=== PATIENT | female | born 1960 | race Caucasian/White ===

== ENCOUNTER 2023-01-02 19:34 | Emergency (ER) | payer MEDICARE ==
--- NOTE | 2023-01-02 20:17 | ED ---
SOB HPI - General Source: patient, family, RN notes reviewed Mode of arrival: ambulatory Limitations: no limitations - History of Present Illness MD Complaint: shortness of breath, cough <Haily Banerjee - Last Filed: 01/02/23 20:16> <Marixa Stallings - Last Filed: 01/03/23 00:06> <GigiharleenKeaton - Last Filed: 01/03/23 00:11> - General Chief Complaint: Shortness of Breath Stated Complaint: SOB,Sore throat,congested Time Seen by Provider: 01/02/23 20:13 - History of Present Illness Initial Comments: This is a 62 year old female who presents to the emergency department for s hortness of breath. Symptoms started 3 days ago. Symptoms began with fevers, chills, coughing, body aches, and a sore throat before progressing to the shortness of breath. Last night and into today she felt nauseous as well. Also reports feeling very fatigued. She went to [facility] urgent care earlier today and had a chest x-ray demonstrating left lower lobe pneumonia, and she was advised to come to the emergency department for further evaluation and blood work. (Haily Banerjee) I agree with the above HPI. Patient short of breath with exertion she does have history of COPD states she has not had insurance therefore does not take any medications for to home. She does not wear supplemental nausea. She is not short of breath at rest. She denies chest pain. Denies leg pain and swelling. (Marixa Stallings) - Related Data Home Medications Medication Instructions Recorded Confirmed Acetaminophen Tab [Tylenol Tab] 1,000 mg PO Q6HR PRN 01/02/23 01/02/23 guaiFENesin [Mucinex] 600 mg PO Q12H PRN 01/02/23 01/02/23 Previous Rx's Medication Instructions Recorded Albuterol Inhaler [Ventolin Hfa 2 puff INHALATION QID #8 gm 01/02/23 Inhaler] predniSONE 50 mg PO DAILY #5 tab 01/02/23 Azithromycin [Zithromax] 500 mg PO DAILY #7 tab 01/03/23 Ipratropium/Albuter 20-100Mcg 1 puff INHALATION Q4H #4 gm 01/03/23 [Combivent Respimat 20-100Mcg Inhaler] Allergies Allergy/AdvReac Type Severity Reaction Status Date / Time codeine Allergy Unknown Verified 01/02/23 22:59 cyclobenzaprine Allergy Unknown Verified 01/02/23 22:59 [From Flexeril] morphine Allergy Unknown Verified 01/02/23 22:59 Review of Systems ROS Other: All systems not noted in ROS Statement are negative. <Haily Banerjee - Last Filed: 01/02/23 20:16> ROS Other: All systems not noted in ROS Statement are negative. <Marixa Stallings - Last Filed: 01/03/23 00:06> ROS Other: All systems not noted in ROS Statement are negative. <Keaton Hull - Last Filed: 01/03/23 00:11> ROS Statement: Those systems with pertinent positive or pertinent negative responses have been documented in the HPI. General Exam <Haily Banerjee - Last Filed: 01/02/23 20:16> General appearance: alert Respiratory exam: Present: decreased breath sounds (left lower). Absent: normal lung sounds bilaterally, respiratory distress, wheezes, rales, rhonchi, stridor Cardiovascular Exam: Present: regular rate, normal rhythm, normal heart sounds. Absent: systolic murmur, diastolic murmur, rubs, gallop, clicks Extremities exam: Present: normal inspection, normal capillary refill Neurological exam: Present: alert Psychiatric exam: Present: normal affect, normal mood Skin exam: Present: warm, dry, intact, normal color. Absent: rash <HaylieMarixa toro - Last Filed: 01/03/23 00:06> - General Exam Comments Initial Comments: Visual Physical Exam Vital signs reviewed General: Well-appearing, nontoxic, no acute distress. Head: Normocephalic, atraumatic Eyes: PERRLA, EOMI ENT: Airway patent Chest: Nonlabored breathing Skin: No visual rash, normal skin tone Neuro: Alert and oriented 3 Musculoskeletal: No gross abnormalities I performed the QuickNote portion of this chart. Signed Haily Banerjee PA-C. (Haily Banerjee) Course Vital Signs 01/02/23 01/03/23 01/03/23 20:15 00:02 00:10 Temperature 98.8 F Pulse Rate 83 62 64 Respiratory 24 Rate Blood Pressure 126/80 O2 Sat by Pulse 98 Oximetry Medical Decision Making - Lab Data Result diagrams: 01/02/23 22:28 01/02/23 22:28 <Bryson Stallingsna - Last Filed: 01/03/23 00:06> - Lab Data Result diagrams: 01/02/23 22:28 01/02/23 22:28 <Keaton Hull - Last Filed: 01/03/23 00:11> - Medical Decision Making EKG taken at 22:26, interpreted by myself Sinus rhythm, nonspecific T-wave abnormality Ventricular rate 71, DE interval 142, QRS duration 109, QTc 427 Was pt. sent in by a medical professional or institution (, PA, MAT PUNCHER, urgent care, hospital, or detention...) When possible be specific @ -Urgent care Did you speak to anyone other than the patient for history (EMS, parent, family, police, friend...)? What history was obtained from this source @ -[No] Did you review nursing and triage notes (agree or disagree)? Why? @ -[I reviewed and agree with nursing and triage notes] Were old charts reviewed (outside hosp., previous admission, EMS record, old EKG, old radiological studies, urgent care reports/EKG's, detention records)? Report findings @ -[No old charts were reviewed] Differential Diagnosis (chest pain, altered mental status, abdominal pain women, abdominal pain men, vaginal bleeding, weakness, fever, dyspnea, syncope, headache, dizziness, GI bleed, back pain, seizure, CVA, palpatations, mental health)? @ -Differential Dyspnea: Coronary syndrome, arrhythmia, tamponade, asthma, COPD, pulmonary embolism, pneumonia, pneumothorax, pulmonary effusion, anaphylaxis, diabetic ketoacidosis, flailed chest, pulmonary contusion, diaphragmatic rupture, anemia, neuromuscula r, this is not meant to be an all-inclusive list. EKG interpreted by me (3pts min.). @ -[As above] X-rays interpreted by me (1pt min.). @ -[None done] CT interpreted by me (1pt min.). @ -[None done] U/S interpreted by me (1pt. min.). @ -[None done] What testing was considered but not performed or refused? (CT, X-rays, U/S, labs )? Why? @ -[None] What meds were considered but not given or refused? Why? @ -[None] Did you discuss the management of the patient with other professionals (professionals i.e. , PA, MAT PUNCHER, lab, RT, psych nurse, hospice social worker, electrical lineworker, teacher, boat officer, case sealer)? Give summary @ -[No] Was smoking cessation discussed for >3mins.? @ -[No] Was critical care preformed (if so, how long)? @ -[No] Were there social determinants of health that impacted care today? How? (Homelessness, low income, unemployed, alcoholism, drug addiction, transportation, low edu. Level, literacy, decrease access to med. care, retirement, rehab)? @ -[No] Was there de-escalation of care discussed even if they declined (Discuss DNR or withdrawal of care, Hospice)? DNR status @ -[No] What co-morbidities impacted this encounter? (DM, HTN, Smoking, COPD, CAD, Cancer, CVA, ARF, Chemo, Hep., AIDS, mental health diagnosis, sleep apnea, morbid obesity)? @ -[None] Was patient admitted / discharged? Hospital course, mention meds given and route, prescriptions, significant lab abnormalities, going to OR and other pert inent info. @ -62-year-old female presenting for shortness of breath. Patient well appearing in no apparent distress. No hypoxia. No wheezing or rhonchi. Laboratory studies obtained. No leukocytosis. Viral and strep testing is negative. Patient given breathing treatment with improvement. X-ray interpreted by myself showing * . .Results discussed with patient. Patient is immunocompetent, no fever, leukocytosis, vomiting, or chest pain. She will be discharged with anti biotics for pneumonia. She does not have a nebulizer at home she will be sent home with albuterol inhaler and steroids for COPD exacerbation. She will follow-up with her primary care provider. Discussed return parameters. Undiagnosed new problem with uncertain prognosis? @ -[No] Drug Therapy requiring intensive monitoring for toxicity (Heparin, Nitro, Insulin, Cardizem)? @ -[No] Were any procedures done? @ -[No] Diagnosis/symptom? @ -[default] Acute, or Chronic, or Acute on Chronic? @ -[default] Uncomplicated (without systemic symptoms) or Complicated (systemic symptoms)? @ -[default] Side effects of treatment? @ -[No] Exacerbation, Progression, or Severe Exacerbation? @ -[No] Poses a threat to life or bodily function? How? (Chest pain, [place], [place], pneumonia, PE, COPD, DKA, ARF, appy, cholecystitis, CVA, Diverticulitis, Homicidal, Suicidal, threat to staff... and all critical care pts) @ -[No] Dr. Hull is my attending. (Marixa Stallings) - Lab Data Lab Results 01/02/23 01/02/23 01/02/23 Range/Units 22:28 22:28 22:28 WBC 7.1 (3.8-10.6) k/uL RBC 4.50 (3.80-5.40) m/uL Hgb 13.8 (11.4-16.0) gm/dL Hct 41.4 (34.0-46.0) % MCV 91.9 (80.0-100.0) fL MCH 30.6 (25.0-35.0) pg MCHC 33.3 (31.0-37.0) g/dL RDW 13.4 (11.5-15.5) % Plt Count 256 (150-450) k/uL MPV 8.5 Neutrophils % 62 % Lymphocytes % 26 % Monocytes % 6 % Eosinophils % 3 % Basophils % 1 % Neutrophils # 4.4 (1.3-7.7) k/uL Lymphocytes # 1.9 (1.0-4.8) k/uL Monocytes # 0.5 (0-1.0) k/uL Eosinophils # 0.2 (0-0.7) k/uL Basophils # 0.0 (0-0.2) k/uL PT 9.9 (9.0-12.0) sec INR 0.9 (<1.2) APTT 24.4 (22.0-30.0) sec Sodium 140 (137-145) mmol/L Potassium 4.0 (3.5-5.1) mmol/L Chloride 105 (98-107) mmol/L Carbon Dioxide 24 (22-30) mmol/L Anion Gap 11 mmol/L BUN 12 (7-17) mg/dL Creatinine 0.72 (0.52-1.04) mg/dL Est GFR (CKD-EPI)AfAm >90 (>60 ml/min/1.73 sqM) Est GFR (CKD-EPI)NonAf >90 (>60 ml/min/1.73 sqM) Glucose 106 H (74-99) mg/dL Plasma Lactic Acid Fredy (0.7-2.0) mmol/L Calcium 9.4 (8.4-10.2) mg/dL Total Bilirubin 0.3 (0.2-1.3) mg/dL AST 31 (14-36) U/L ALT 35 H (4-34) U/L Alkaline Phosphatase 72 (38-126) U/L Total Protein 7.3 (6.3-8.2) g/dL Albumin 4.2 (3.5-5.0) g/dL Influenza Type A (PCR) (Not Detectd) Influenza Type B (PCR) (Not Detectd) RSV (PCR) (Not Detectd) SARS-CoV-2 (PCR) (Not Detectd) Group A Strep (PCR) (Not Detectd) 01/02/23 01/02/23 01/02/23 Range/Units 22:28 22:28 22:38 WBC (3.8-10.6) k/uL RBC (3.80-5.40) m/uL Hgb (11.4-16.0) gm/dL Hct (34.0-46.0) % MCV (80.0-100.0) fL MCH (25.0-35.0) pg MCHC (31.0-37.0) g/dL RDW (11.5-15.5) % Plt Count (150-450) k/uL MPV Neutrophils % % Lymphocytes % % Monocytes % % Eosinophils % % Basophils % % Neutrophils # (1.3-7.7) k/uL Lymphocytes # (1.0-4.8) k/uL Monocytes # (0-1.0) k/uL Eosinophils # (0-0.7) k/uL Basophils # (0-0.2) k/uL PT (9.0-12.0) sec INR (<1.2) APTT (22.0-30.0) sec Sodium (137-145) mmol/L Potassium (3.5-5.1) mmol/L Chloride (98-107) mmol/L Carbon Dioxide (22-30) mmol/L Anion Gap mmol/L BUN (7-17) mg/dL Creatinine (0.52-1.04) mg/dL Est GFR (CKD-EPI)AfAm (>60 ml/min/1.73 sqM) Est GFR (CKD-EPI)NonAf (>60 ml/min/1.73 sqM) Glucose (74-99) mg/dL Plasma Lactic Acid Fredy 1.0 (0.7-2.0) mmol/L Calcium (8.4-10.2) mg/dL Total Bilirubin (0.2-1.3) mg/dL AST (14-36) U/L ALT (4-34) U/L Alkaline Phosphatase (38-126) U/L Total Protein (6.3-8.2) g/dL Albumin (3.5-5.0) g/dL Influenza Type A (PCR) Not Detected (Not Detectd) Influenza Type B (PCR) Not Detected (Not Detectd) RSV (PCR) Not Detected (Not Detectd) SARS-CoV-2 (PCR) Not Detected (Not Detectd) Group A Strep (PCR) NOT DETECTED (Not Detectd) Disposition <Haily Banerjee - Last Filed: 01/02/23 20:16> Is patient prescribed a controlled substance at d/c from ED?: No <Marixa Stallings - Last Filed: 01/03/23 00:06> Is patient prescribed a controlled substance at d/c from ED?: No <Keaton Hull - Last Filed: 01/03/23 00:11> Clinical Impression: COPD exacerbation Disposition: HOME SELF-CARE Condition: Good Instructions (If sedation given, give patient instructions): COPD (Chronic Obstructive Pulmonary Disease) (ED) Additional Instructions: Take medication as directed. Please follow-up with your primary care provider in 1-2 days. Return to the emergency department if you experience new, concerning, or worsening symptoms. Prescriptions: Ipratropium/Albuter 20-100Mcg [Combivent Respimat 20-100Mcg Inhaler] 1 puff INHALATION Q4H #4 gm predniSONE 50 mg PO DAILY #5 tab Albuterol Inhaler [Ventolin Hfa Inhaler] 2 puff INHALATION QID #8 gm Azithromycin [Zithromax] 500 mg PO DAILY #7 tab Referrals: None,Stated [Primary Care Provider] - 1-2 days
[2023-01-02] MEDS ORDERED: ONDANSETRON 4 MG/2 ML VIAL IVP STA (22:15)
[2023-01-02 22:40] LABS: Basophils % (A) 1 %; Eosinophils # (A) 0.2 k/uL (0-0.7); Eosinophils % (A) 3 %; HCT 41.4 % (34.0-46.0); HGB 13.8 gm/dL (11.4-16.0); Lymphocytes # (A) 1.9 k/uL (1.0-4.8); Lymphocytes % (A) 26 %; MCH 30.6 pg (25.0-35.0); MCHC 33.3 g/dL (31.0-37.0); MCV 91.9 fL (80.0-100.0); Mean Platelet Volume 8.5; Monocytes # (A) 0.5 k/uL (0-1.0); Monocytes % (A) 6 %; Neutrophils # (A) 4.4 k/uL (1.3-7.7); Neutrophils % (A) 62 %; Platelet Count 256 k/uL (150-450); RDW 13.4 % (11.5-15.5); WBC 7.1 k/uL (3.8-10.6)
[2023-01-02 22:48] LABS: INR 0.9 (<1.2); Partial Thromboplastin Time 24.4 sec (22.0-30.0); Prothrombin Time 9.9 sec (9.0-12.0)
[2023-01-02 22:50] LABS: ALT 35 U/L (4-34); AST 31 U/L (14-36); African American GFR (CKD) >90 (>60 ml/min/1.73 sqM); Albumin 4.2 g/dL (3.5-5.0); Alkaline Phosphatase 72 U/L (38-126); Anion Gap 11 mmol/L; Blood Urea Nitrogen 12 mg/dL (7-17); Calcium 9.4 mg/dL (8.4-10.2); Carbon Dioxide 24 mmol/L (22-30); Chloride 105 mmol/L (98-107); Glucose 106 mg/dL (74-99); Non-African American GFR(CKD) >90 (>60 ml/min/1.73 sqM); Sodium 140 mmol/L (137-145); Total Bilirubin 0.3 mg/dL (0.2-1.3); Total Protein 7.3 g/dL (6.3-8.2)
[2023-01-02] MEDS ORDERED: ALBUTEROL NEBULIZED 2.5 MG/3 ML INHALATION STA (23:13)
[2023-01-02] MEDS ORDERED: methylPREDNISolone SOD SUCCI 125 MG/2 ML VIAL IV STA (23:46)
[2023-01-03] MEDS ORDERED: AZITHROMYCIN 250 MG TAB PO STA (00:02)
--- NOTE | 2023-01-03 00:15 | XR ---
EXAM: XR Chest, 2 Views CLINICAL HISTORY: XR Reason: difficulty breathing TECHNIQUE: Frontal and lateral views of the chest. COMPARISON: No relevant prior studies available. FINDINGS: Lungs: Prominent interstitial markings in the mid to lower lungs bilaterally. Pleural space: Unremarkable. No pneumothorax. Heart: Unremarkable. No cardiomegaly. Mediastinum: Unremarkable. Bones/joints: Unremarkable. Upper abdomen: Unremarkable as visualized. No pneumoperitoneum under the diaphragm. IMPRESSION: Prominent interstitial markings in the mid to lower lungs bilaterally. Consider viral or atypical pneumonitis, less likely scarring or atelectasis.
[2023-01-03 00:18] VITALS: BP 105/71; PULSE 65; RESP 16; TEMP 98.7
== END 2023-01-03 00:17 | disposition home or self-care (01) ==
LOC: EC 19:34
DX: J44.1 Chronic obstructive pulmonary disease with (acute) exacerbation (principal); Z88.5 Allergy status to narcotic agent; Z88.8 Allergy status to other drugs, medicaments and biological substances; Z20.822 Contact with and (suspected) exposure to COVID-19
CPT/HCPCS: 36415; 94640; 93005; 87651; 80053; 83605; 85025; 85610; 85730; 87636; 71046; 99285; 96374; 96375; J2930; J2405

== ENCOUNTER → 2023-05-14 | Outpatient (CLI) | payer MEDICARE ==
--- NOTE | 2023-05-14 16:47 | XR ---
EXAMINATION TYPE: XR chest 2V DATE OF EXAM: 05/14/2023 COMPARISON: 01/02/2023 INDICATION: History of pneumonia TECHNIQUE: Single frontal view of the chest is obtained. FINDINGS: The heart size is normal. The pulmonary vasculature is normal. Some linear opacities in the left lower lung field. Correlate for atelectasis or scarring. This may h ave been present previously. Suspicious consolidation is not identified. IMPRESSION: 1. Atelectasis or scarring left base
== END | disposition home or self-care (01) ==
LOC: RADXRMAIN 16:16
PROVIDERS: ATTEND Family Medicine
DX: J18.9 Pneumonia, unspecified organism (principal)
CPT/HCPCS: 71046

== ENCOUNTER 2023-05-16 09:34 | Observation (INO) | payer MEDICARE ==
[2023-05-16] MEDS: ASPIRIN 81 MG PO STA (10:03)
[2023-05-16] MEDS: NITROGLYCERIN OINT 1 INCH/GM PACKET TOPICAL STA (10:04)
--- NOTE | 2023-05-16 10:13 | XR ---
EXAMINATION TYPE: XR chest 2V DATE OF EXAM: 05/16/2023 10:09 AM CLINICAL INDICATION:Female, 63 years old with history of Chest Pain; [facility] COMPARISON: Chest radiographs from 05/14/2023 TECHNIQUE: XR chest 2V Frontal and lateral views of the chest. FINDINGS: Lungs/Pleura: Midlung streaky atelectasis on the left. There is no evidence of pleural effusion, foca l consolidation, or pneumothorax. Pulmonary vascularity: Unremarkable. Heart/mediastinum: Cardiomediastinal silhouette is unremarkable. Atherosclerotic calcifications are seen in the aorta. Musculoskeletal: No acute osseous pathology. Other findings: None IMPRESSION: 1. No acute cardiopulmonary disease/process. 2. Left midlung streaky atelectasis.
[2023-05-16 10:15] LABS: Basophils # (A) 0.1 k/uL (0-0.2); Basophils % (A) 1 %; Eosinophils # (A) 0.2 k/uL (0-0.7); Eosinophils % (A) 2 %; HCT 42.6 % (34.0-46.0); HGB 14.1 gm/dL (11.4-16.0); Lymphocytes # (A) 2.2 k/uL (1.0-4.8); Lymphocytes % (A) 25 %; MCH 29.9 pg (25.0-35.0); MCV 90.5 fL (80.0-100.0); Mean Platelet Volume 8.1; Monocytes # (A) 0.3 k/uL (0-1.0); Monocytes % (A) 4 %; Neutrophils # (A) 5.9 k/uL (1.3-7.7); Neutrophils % (A) 67 %; Platelet Count 361 k/uL (150-450); RBC 4.71 m/uL (3.80-5.40); RDW 13.3 % (11.5-15.5); WBC 8.9 k/uL (3.8-10.6)
[2023-05-16 10:27] LABS: INR 0.9 (<1.2); Partial Thromboplastin Time 23.8 sec (22.0-30.0)
[2023-05-16 10:30] LABS: ALT 33 U/L (4-34); AST 26 U/L (14-36); African American GFR (CKD) >90 (>60 ml/min/1.73 sqM); Albumin 4.1 g/dL (3.5-5.0); Alkaline Phosphatase 83 U/L (38-126); Anion Gap 9 mmol/L; Blood Urea Nitrogen 19 mg/dL (7-17); Calcium 9.7 mg/dL (8.4-10.2); Carbon Dioxide 23 mmol/L (22-30); Chloride 104 mmol/L (98-107); Glucose 94 mg/dL (74-99); Magnesium 1.9 mg/dL (1.6-2.3); Non-African American GFR(CKD) >90 (>60 ml/min/1.73 sqM); Potassium 5.1 mmol/L (3.5-5.1); Sodium 136 mmol/L (137-145); Total Bilirubin 0.5 mg/dL (0.2-1.3)
--- NOTE | 2023-05-16 10:30 | CT ---
EXAMINATION TYPE: CT brain wo con DATE OF EXAM: 05/16/2023 COMPARISON: 05/16/2023. HISTORY: Headache. Technique: Axial images of the head were obtained without contrast. Coronal and sagittal reformats we re performed. FINDINGS: There is no acute intracranial hemorrhage, mass, mass effect, midline shift, extra-axial fluid collec tion or hydrocephalus. The blankenship-white distinction is intact without evidence of an acute major vessel infarct. There is mucosal thickening seen within the left maxillary sinus. Visualized paranasal sinuses and ma stoid air cells are otherwise clear. IMPRESSION: No acute intracranial process.
[2023-05-16] MEDS ORDERED: NITROGLYCERIN SL TABS 0.4 MG TAB SUBLINGUAL PRN (10:58)
--- NOTE | 2023-05-16 10:58 | ED ---
General Adult HPI - General Chief complaint: Chest Pain Stated complaint: CHEST PAIN Time Seen by Provider: 05/16/23 09:40 Source: patient, RN notes reviewed, old records reviewed Mode of arrival: ambulatory Limitations: no limitations - History of Present Illness Initial comments: This is a 63-year-old female who presents to the emergency department co mplaining of chest pain and shortness of breath that started 8:00 this morning. Patient states she was a smoker up until about a week ago. Patient states she never sees a doctor so she does not know if she has any history of high blood pressure or high cholesterol. Patient again does not know about diabetes but has never been diagnosed with that. Patient states that chest pain is a pressure sensation. Patient denies any radiation of the pain. Patient denies any abdominal pain patient states she is nauseous and has vomited. Patient denies any diarrhea. Patient has any recent fever chills or cough. Patient has any swelling to the legs or calf tenderness. - Related Data Home Medications Medication Instructions Recorded Confirmed Acetaminophen Tab [Tylenol Tab] 1,000 mg PO Q6HR PRN 01/02/23 01/02/23 guaiFENesin [Mucinex] 600 mg PO Q12H PRN 01/02/23 01/02/23 Previous Rx's Medication Instructions Recorded Albuterol Inhaler [Ventolin Hfa 2 puff INHALATION QID #8 gm 01/02/23 Inhaler] predniSONE 50 mg PO DAILY #5 tab 01/02/23 Azithromycin [Zithromax] 500 mg PO DAILY #7 tab 01/03/23 Ipratropium/Albuter 20-100Mcg 1 puff INHALATION Q4H #4 gm 01/03/23 [Combivent Respimat 20-100Mcg Inhaler] Allergies Allergy/AdvReac Type Severity Reaction Status Date / Time codeine Allergy Unknown Verified 05/16/23 09:42 cyclobenzaprine Allergy Unknown Verified 05/16/23 09:42 [From Flexeril] morphine Allergy Unknown Verified 05/16/23 09:42 Review of Systems ROS Statement: Those systems with pertinent positive or pertinent negative responses have been documented in the HPI. ROS Other: All systems not noted in ROS Statement are negative. Past Medical History Past Medical History: COPD History of Any Multi-Drug Resistant Organisms: None Reported Past Surgical History: Section, Orthopedic Surgery Past Psychological History: No Psychological Hx Reported Smoking Status: Current every day smoker Past Alcohol Use History: None Reported Past Drug Use History: None Reported General Exam - General Exam Comments Initial Comments: GENERAL: Patient is well-developed and well-nourished. Patient is nontoxic and well- hydrated and is in mild distress. ENT: Neck is soft and supple. No significant lymphadenopathy is noted. Oropharynx is clear. Moist mucous membranes. Neck has full range of motion without eliciting any pain. EYES: The sclera were anicteric and conjunctiva were pink and moist. Extraocular movements were intact and pupils were equal round and reactive to light. Eyelids were unremarkable. PULMONARY: Unlabored respirations. Good breath sounds bilaterally. No audible rales rhonchi or wheezing was noted. CARDIOVASCULAR: There is a regular rate and rhythm without any murmurs gallops or rubs. ABDOMEN: Soft and nontender with normal bowel sounds. SKIN: Skin is clear with no lesions or rashes and otherwise unremarkable. NEUROLOGIC: Patient is alert and oriented x3. Cranial nerves II through XII are grossly intact. Motor and sensory are also intact. Normal speech, volume and content. Symmetrical smile. MUSCULOSKELETAL: Normal extremities with adequate strength and full range of motion. No lower extremity swelling or edema. No calf tenderness. LYMPHATICS: No significant lymphadenopathy is noted PSYCHIATRIC: Normal psychiatric evaluation. Limitations: no limitations Course Vital Signs 05/16/23 09:37 Temperature 98 F Pulse Rate 72 Respiratory 18 Rate Blood Pressure 117/72 O2 Sat by Pulse 98 Oximetry Medical Decision Making - Medical Decision Making EKG is interpreted by myself. EKG shows a sinus rhythm at 72 bpm UT is 123 QRS is 90 QT interval 393 QTc is 418. Patient's EKG shows no ST segment ovation or depression. Was pt. sent in by a medical professional or institution (, PA, FLAT [employer] ELEMENT MAKER, urgent care, hospital, or skilled nursing...) When possible be specific @ -No Did you speak to anyone other than the patient for history (EMS, parent, family, police, friend...)? What history was obtained from this source @ -No Did you review nursing and triage notes (agree or disagree)? Why? @ -I reviewed and agree with nursing and triage notes Were old charts reviewed (outside hosp., previous admission, EMS record, old EKG, old radiological studies, urgent care reports/EKG's, skilled nursing records)? Report findings @ -No old charts were reviewed Differential Diagnosis (chest pain, altered mental status, abdominal pain women, abdominal pain men, vaginal bleeding, weakness, fever, dyspnea, syncope, headache, dizziness, GI bleed, back pain, seizure, CVA, palpatations, mental health, musculoskeletal)? @ -Differential Chest Pain: Stable Angina, Unstable Angina, STEMI, NSTEMI Aortic Dissection, Pneumothorax, Musculoskeletal, Esophageal Spasm GERD, Cholecystitis, Pancreatitis, Zoster, this is not meant to be an all-inclusive list. EKG interpreted by me (3pts min.). @ -As above X-rays interpreted by me (1pt min.). @ -Chest x-ray shows no acute abnormality. CT interpreted by me (1pt min.). @ -Head CT shows no acute normality. U/S interpreted by me (1pt. min.). @ -None done What testing was considered but not performed or refused? (CT, X-rays, U/S, labs)? Why? @ -None What meds were considered but not given or refused? Why? @ -None Did you discuss the management of the patient with other professionals (professionals i.e. , PA, [employer] MAKER, lab, RT, psych nurse, social media sr strategy manager, experimental machinist, teacher, personal banking officer, manager rn case)? Give summary @ -[facility] Was smoking cessation discussed for >3mins.? @ -No Was critical care preformed (if so, how long)? @ -No Were there social determinants of health that impacted care today? How? (Homelessness, low income, unemployed, alcoholism, drug addiction, transportation, low edu. Level, literacy, decrease access to med. care, skilled nursing, rehab)? @ -No Was there de-escalation of care discussed even if they declined (Discuss DNR or withdrawal of care, Hospice)? DNR status @ -No What co-morbidities impacted this encounter? (DM, HTN, Smoking, COPD, CAD, Cancer, CVA, ARF, Chemo, Hep., AIDS, mental health diagnosis, sleep apnea, morbid obesity)? @ -None Was patient admitted / discharged? Hospital course, mention meds given and route, prescriptions, significant lab abnormalities, going to OR and other pert inent info. @ -Patient received aspirin and Nitropaste when I went back into reevaluate her she was feeling considerably better at this time. Patient also got Toradol and Tylenol for the headache once the CAT scan was done. I spoke with [facility] hospitalist they agreed to admit the patient admit the patient I consulted cardiology and I wrote admitting orders Undiagnosed new problem with uncertain prognosis? @ -No Drug Therapy requiring intensive monitoring for toxicity (Heparin, Nitro, Insulin, Cardizem)? @ -No Were any procedures done? @ -No Diagnosis/symptom? @ -Chest pain Acute, or Chronic, or Acute on Chronic? @ -Acute Uncomplicated (without systemic symptoms) or Complicated (systemic symptoms)? @ -Complicated Side effects of treatment? @ -No Exacerbation, Progression, or Severe Exacerbation? @ -No Poses a threat to life or bodily function? How? (Chest pain, [place], [place], pneumonia, PE, COPD, DKA, ARF, appy, cholecystitis, CVA, Diverticulitis, Homicidal, Suicidal, threat to staff... and all critical care pts) @ -Yes this could lead to an OK and endorgan dysfunction Diagnosis/symptom? @ -Cephalgia Acute, or Chronic, or Acute on Chronic? @ -Acute Uncomplicated (without systemic symptoms) or Complicated (systemic symptoms)? @ -Complicated Side effects of treatment? @ -None Exacerbation, Progression, or Severe Exacerbation] @ -No Poses a threat to life or bodily function? @ -No - Lab Data Result diagrams: 05/16/23 09:59 05/16/23 09:59 Lab Results 05/16/23 05/16/23 05/16/23 Range/Units 09:59 09:59 09:59 WBC 8.9 (3.8-10.6) k/uL RBC 4.71 (3.80-5.40) m/uL Hgb 14.1 (11.4-16.0) gm/dL Hct 42.6 (34.0-46.0) % MCV 90.5 (80.0-100.0) fL MCH 29.9 (25.0-35.0) pg MCHC 33.0 (31.0-37.0) g/dL RDW 13.3 (11.5-15.5) % Plt Count 361 (150-450) k/uL MPV 8.1 Neutrophils % 67 % Lymphocytes % 25 % Monocytes % 4 % Eosinophils % 2 % Basophils % 1 % Neutrophils # 5.9 (1.3-7.7) k/uL Lymphocytes # 2.2 (1.0-4.8) k/uL Monocytes # 0.3 (0-1.0) k/uL Eosinophils # 0.2 (0-0.7) k/uL Basophils # 0.1 (0-0.2) k/uL PT 10.0 (10.0-12.5) sec INR 0.9 (<1.2) APTT 23.8 (22.0-30.0) sec Sodium 136 L (137-145) mmol/L Potassium 5.1 (3.5-5.1) mmol/L Chloride 104 (98-107) mmol/L Carbon Dioxide 23 (22-30) mmol/L Anion Gap 9 mmol/L BUN 19 H (7-17) mg/dL Creatinine 0.72 (0.52-1.04) mg/dL Est GFR (CKD-EPI)AfAm >90 (>60 ml/min/1.73 sqM) Est GFR (CKD-EPI)NonAf >90 (>60 ml/min/1.73 sqM) Glucose 94 (74-99) mg/dL Calcium 9.7 (8.4-10.2) mg/dL Magnesium 1.9 (1.6-2.3) mg/dL Total Bilirubin 0.5 (0.2-1.3) mg/dL AST 26 (14-36) U/L ALT 33 (4-34) U/L Alkaline Phosphatase 83 (38-126) U/L Troponin I (0.000-0.034) ng/mL Total Protein 7.0 (6.3-8.2) g/dL Albumin 4.1 (3.5-5.0) g/dL 05/16/23 Range/Units 09:59 WBC (3.8-10.6) k/uL RBC (3.80-5.40) m/uL Hgb (11.4-16.0) gm/dL Hct (34.0-46.0) % MCV (80.0-100.0) fL MCH (25.0-35.0) pg MCHC (31.0-37.0) g/dL RDW (11.5-15.5) % Plt Count (150-450) k/uL MPV Neutrophils % % Lymphocytes % % Monocytes % % Eosinophils % % Basophils % % Neutrophils # (1.3-7.7) k/uL Lymphocytes # (1.0-4.8) k/uL Monocytes # (0-1.0) k/uL Eosinophils # (0-0.7) k/uL Basophils # (0-0.2) k/uL PT (10.0-12.5) sec INR (<1.2) APTT (22.0-30.0) sec Sodium (137-145) mmol/L Potassium (3.5-5.1) mmol/L Chloride (98-107) mmol/L Carbon Dioxide (22-30) mmol/L Anion Gap mmol/L BUN (7-17) mg/dL Creatinine (0.52-1.04) mg/dL Est GFR (CKD-EPI)AfAm (>60 ml/min/1.73 sqM) Est GFR (CKD-EPI)NonAf (>60 ml/min/1.73 sqM) Glucose (74-99) mg/dL Calcium (8.4-10.2) mg/dL Magnesium (1.6-2.3) mg/dL Total Bilirubin (0.2-1.3) mg/dL AST (14-36) U/L ALT (4-34) U/L Alkaline Phosphatase (38-126) U/L Troponin I <0.012 (0.000-0.034) ng/mL Total Protein (6.3-8.2) g/dL Albumin (3.5-5.0) g/dL Disposition Clinical Impression: Chest pain, Cephalgia Disposition: ADMITTED IP TO THIS HOSP Referrals: Alma Jasso MD [Primary Care Provider] - 1-2 days Time of Disposition: 10:58
[2023-05-16] MEDS: KETOROLAC 15 MG/ML 1 ML VIAL IVP STA (11:12)
[2023-05-16] MEDS: ACETAMINOPHEN TAB 500 MG TAB PO STA (11:15)
[2023-05-16] MEDS: NITROGLYCERIN OINT 1 INCH/GM PACKET TOPICAL SCH (12:03)
[2023-05-16] MEDS ORDERED: ONDANSETRON 4 MG/2 ML VIAL IVP PRN (12:08)
[2023-05-16] MEDS ORDERED: NALOXONE 0.4 MG/ML 1 ML VIAL IV PRN (12:08)
--- NOTE | 2023-05-16 12:45 | P.HPIM ---
History of Present Illness H&P Date: 05/16/23 Chief Complaint: Chest pain * 63-year-old patient with past medical history significant for COPD presents to the emergency department with complaints of chest pain and shortness of breath that started earlier today. Patient states she has history of COPD and chronic tobacco use however she has not smoked in 1 week. Patient stated that chest pain has been diffuse pressure. Patient denies chest pain radiation. Workup in the ER included an EKG which was essentially negative. Serial troponins were obtained which were initially negative as well * Blood work obtained include WBC within normal limits hemoglobin and platelet count within normal limits * Serum chemistry shows sodium 136 potassium 5.1, BUN and creatinine essentially normal, calcium within normal limits * Patient to be admitted to medical floor with consultation from cardiology REVIEW OF SYSTEMS: Chest pain, shortness of breath CONSTITUTIONAL: No fever, no malaise, no fatigue. HEENT: No recent visual problems or hearing problems. Denied any sore throat. CARDIOVASCULAR: No chest pain, orthopnea, PND, no palpitations, no syncope. PULMONARY: No shortness of breath, no cough, no hemoptysis. GASTROINTESTINAL: No diarrhea, no nausea, no vomiting, no abdominal pain. NEUROLOGICAL: No headaches, no weakness, no numbness. HEMATOLOGICAL: Denies any bleeding or petechiae. GENITOURINARY: Denies any burning micturition, frequency, or urgency. MUSCULOSKELETAL/RHEUMATOLOGICAL: Denies any joint pain, swelling, or any muscle pain. ENDOCRINE: Denies any polyuria or polydipsia. PHYSICAL EXAMINATION: GENERAL: The patient is alert and oriented x3, not in any acute distress. Well developed, well nourished. HEENT: Pupils are round and equally reacting to light. EOMI. No scleral icterus. No conjunctival pallor. Normocephalic, atraumatic. No pharyngeal erythema. No thyromegaly. CARDIOVASCULAR: S1 and S2 present. No murmurs, rubs, or gallops. PULMONARY: Chest is clear to auscultation, no wheezing or crackles. ABDOMEN: Soft, nontender, nondistended, normoactive bowel sounds. No palpable organomegaly. MUSCULOSKELETAL: No joint swelling or deformity. EXTREMITIES: No cyanosis, clubbing, or pedal edema. NEUROLOGICAL: Gross neurological examination did not reveal any focal deficits. SKIN: No rashes. Past Medical History Past Medical History: COPD History of Any Multi-Drug Resistant Organisms: None Reported Past Surgical History: Section, Orthopedic Surgery Past Psychological History: No Psychological Hx Reported Smoking Status: Current every day smoker Past Alcohol Use History: None Reported Past Drug Use History: None Reported Medications and Allergies Home Medications Medication Instructions Recorded Confirmed Type Ipratropium/Albuter 20-100Mcg 1 puff INHALATION RT-Q6H PRN 05/16/23 05/16/23 History [Combivent Respimat 20-100Mcg Inhaler] Allergies Allergy/AdvReac Type Severity Reaction Status Date / Time codeine Allergy Unknown Verified 05/16/23 11:02 cyclobenzaprine Allergy Unknown Verified 05/16/23 11:02 [From Flexeril] morphine Allergy Unknown Verified 05/16/23 11:02 Physical Exam Vitals: Vital Signs Temp Pulse Resp BP Pulse Ox 05/16/23 09:37 98 F 72 18 117/72 98 Intake and Output 05/15/23 05/16/23 05/16/23 22:59 06:59 14:59 Other: Weight 84.822 kg Results CBC & Chem 7: 05/16/23 09:59 05/16/23 09:59 Labs: Abnormal Lab Results - Last 24 Hours (Table) 05/16/23 Range/Units 09:59 Sodium 136 L (137-145) mmol/L BUN 19 H (7-17) mg/dL Assessment and Plan Assessment: Assessment and plan * Chest pain rule out ACS * History of COPD * Chronic tobacco use * In regards to chest pain, serial troponins ordered, cardiology consulted sublingual nitroglycerin * In regards to history of COPD as needed breathing treatments * In regards to chronic tobacco use nicotine patch ordered * CODE STATUS is full code Time with Patient: Greater than 30
[2023-05-16] MEDS: NICOTINE 21MG/24HR PATCH TRANSDERM SCH (12:55)
[2023-05-16] MEDS: SODIUM CHLORIDE 0.9% 1,000 ML IV SCH (12:57)
[2023-05-16] MEDS: IPRATROPIUM-ALBUTEROL 3 ML NEB INHALATION PRN (20:25)
[2023-05-17] MEDS: ASPIRIN 325 MG TAB PO SCH (08:47)
--- NOTE | 2023-05-17 10:45 | P.CRDCN ---
History of Present Illness History of present illness: HISTORY OF PRESENT ILLNESS: This is a 63-year-old female with a past medical history significant for heart disease, hyperlipidemia, COPD and nicotine dependence. Patient does not follow w ith a maintenance chief. We have been asked to see the patient in consultation for chest pain. Patient examined at the bedside. Patient presented to the hospital with a chief complaint of chest pain. The patient states that she has not had insurance and has not seen a physician in approximately 10 years. She states that she does have an appointment to establish care in the cardiology office after going to her new PCP and was told she had an enlarged heart and a heart murmur. Patient states for the past month she has been getting a headache and chest pain. She states the pain will come on randomly and does not seem to be exertionally related. She states yesterday she had chest pain on the left side of her chest that went into her axilla and down her left arm to her elbow. She states the pain lasted for approximately 1 hour. She states that when she got to the emergency room they gave her Nitropaste which relieved her pain. She reports having another episode of chest pain this morning. The patient states she has a history of hyperlipidemia and used to take Lipitor although has not for many years. She stopped smoking about 11 days ago. She states she was a 1 pack/day smoker. She reports that she had a " major heart attack" approximately 20 years ago. She underwent an angiogram at that time at a hospital out of [facility]. She believes that she had 1 blockage but was told it was not significant enough to require stenting. She states she has not had any further cardiac catheterizations since that time. She reports having " 3-4 minor heart attacks" since that time. She states she has not had a stress test in over 5 years. She denies any alcohol use. Denies any drug use. Denies any family history of CAD. DIAGNOSTICS: - EKG reveals sinus mechanism with T wave inversions in V2V3, similar to previous EKG in December 2022 - Chest xray no acute cardiopulmonary process/disease. Left midlung streaky atelectasis. - CT brain: Negative for acute process - Laboratory data: WBC 8.9. Hemoglobin 14.1. Platelet count 361. Sodium 136. Potassium 5.1. BUN 19. Creatinine 0.72. Magnesium 1.9. Troponin negative x 1 - Current home cardiac medications include none. - No previous echocardiogram, stress test, or cardiac catheterization available for review in EMR REVIEW OF SYSTEMS: At the time of my exam: CONSTITUTIONAL: Denies fever or chills. HEENT: Denies blurred vision, vision changes, or eye pain. Denies hemoptysis CARDIOVASCULAR: Denies chest pain. Denies orthopnea. Denies PND. Denies palpitations RESPIRATORY: Denies shortness of breath. GASTROINTESTINAL: Denies abdominal pain. Denies nausea or vomiting. HEMATOLOGIC: Denies bleeding disorders. GENITOURINARY: Denies any blood in urine. SKIN: Denies pruitis. Denies rash. PHYSICAL EXAM: VITAL SIGNS: Reviewed. GENERAL: Well-developed in no acute distress. HEENT: Head is normocephalic. Pupils are equal, round. Sclerae anicteric. Mucous membranes of the mouth are moist. Neck supple. No JVD or thyromegaly LUNGS: Respirations even and unlabored. Lungs essentially clear to auscultation bilaterally. HEART: Regular rate and rhythm. S1 and S2 heard. Systolic murmur noted ABDOMEN: Soft. Nondistended. Nontender. EXTREMITIES: Normal range of motion. No clubbing or cyanosis. Peripheral pulse s intact. No lower extremity edema NEUROLOGIC: Awake and alert. Oriented x 3. ASSESSMENT: Chest pain x 1 month Headache Reported history of coronary artery disease without stenting Hyperlipidemia, not on statin therapy outpatient due to lack of insurance per patient COPD Nicotine dependence Medication noncompliance due to lack of insurance PLAN: Obtain 2D echo to assess cardiac structure and function Begin aspirin 81 mg daily Begin atorvastatin 80 mg at night. Obtain lipid panel Continued smoking cessation encouraged Discussed stress testing versus cardiac catheterization with patient. Due to her symptoms and history, recommend cardiac catheterization for definitive diagnosis. This will be discussed with Dr. Koenig. Further recommendations pending patient course Nurse practitioner note has been reviewed by physician. Signing provider agrees with the documented findings, assessment, and plan of care documented by OPTICAL MECHANIC APPRENTICE as a scribe. Past Medical History Past Medical History: COPD History of Any Multi-Drug Resistant Organisms: None Reported Past Surgical History: Section, Orthopedic Surgery Past Psychological History: No Psychological Hx Reported Smoking Status: Current every day smoker Past Alcohol Use History: None Reported Past Drug Use History: None Reported Medications and Allergies Home Medications Medication Instructions Recorded Confirmed Type Ipratropium/Albuter 20-100Mcg 1 puff INHALATION RT-Q6H PRN 05/16/23 05/16/23 History [Combivent Respimat 20-100Mcg Inhaler] Allergies Allergy/AdvReac Type Severity Reaction Status Date / Time codeine Allergy Unknown Verified 05/16/23 11:02 cyclobenzaprine Allergy Unknown Verified 05/16/23 11:02 [From Flexeril] morphine Allergy Unknown Verified 05/16/23 11:02 Physical Exam Vitals: Vital Signs Temp Pulse Resp BP Pulse Ox 05/16/23 09:37 98 F 72 18 117/72 98 Intake and Output 05/15/23 05/16/23 05/16/23 22:59 06:59 14:59 Other: Weight 84.822 kg Results 05/16/23 09:59 05/16/23 09:59 Cardiac Enzymes 05/16/23 05/16/23 Range/Units 09:59 09:59 AST 26 (14-36) U/L Troponin I <0.012 (0.000-0.034) ng/mL Coagulation 05/16/23 Range/Units 09:59 PT 10.0 (10.0-12.5) sec APTT 23.8 (22.0-30.0) sec CBC 05/16/23 Range/Units 09:59 WBC 8.9 (3.8-10.6) k/uL RBC 4.71 (3.80-5.40) m/uL Hgb 14.1 (11.4-16.0) gm/dL Hct 42.6 (34.0-46.0) % Plt Count 361 (150-450) k/uL Comprehensive Metabolic Panel 05/16/23 Range/Units 09:59 Sodium 136 L (137-145) mmol/L Potassium 5.1 (3.5-5.1) mmol/L Chloride 104 (98-107) mmol/L Carbon Dioxide 23 (22-30) mmol/L BUN 19 H (7-17) mg/dL Creatinine 0.72 (0.52-1.04) mg/dL Glucose 94 (74-99) mg/dL Calcium 9.7 (8.4-10.2) mg/dL AST 26 (14-36) U/L ALT 33 (4-34) U/L Alkaline Phosphatase 83 (38-126) U/L Total Protein 7.0 (6.3-8.2) g/dL Albumin 4.1 (3.5-5.0) g/dL Current Medications Generic Name Dose Route Start Last Admin Trade Name Freq PRN Reason Stop Dose Admin Acetaminophen 650 mg 05/16/23 12:08 Acetaminophen Tab 325 Mg Tab PO Q6HR PRN Mild Pain or Fever > 100.5 Albuterol/Ipratropium 3 ml 05/16/23 12:18 Ipratropium-Albuterol 3 Ml Neb INHALATION RT-Q6H PRN Shortness Of Breath Aspirin 325 mg 05/17/23 09:00 Aspirin 325 Mg Tab PO DAILY [facility] Sodium Chloride 1,000 mls @ 20 mls/hr 05/16/23 12:15 Saline 0.9% IV .Q24H ROXANNA Naloxone HCl 0.2 mg 05/16/23 12:08 Naloxone 0.4 Mg/Ml 1 Ml Vial IV Q2M PRN Opioid Reversal Nitroglycerin 0.4 mg 05/16/23 10:58 Nitroglycerin Sl Tabs 0.4 Mg Tab SUBLINGUAL Q5M PRN Chest Pain Nitroglycerin 1 inch 05/16/23 12:00 05/16/23 12:03 Nitroglycerin Oint 1 Inch/Gm Packet TOPICAL Not Given Q6HR [facility] Ondansetron HCl 4 mg 05/16/23 12:08 Ondansetron 4 Mg/2 Ml Vial IVP Q8HR PRN Nausea And Vomiting Intake and Output 05/15/23 05/16/23 05/16/23 22:59 06:59 14:59 Other: Weight 84.822 kg Patient Weight 05/17/23 06:59 Weight 84.822 kg 05/16/23 09:59 05/16/23 09:59
[2023-05-17 11:05] LABS: Basophils # (A) 0.05 X 10*3/uL (0.00-0.10); Basophils % (A) 0.6 %; Eosinophils # (A) 0.13 X 10*3/uL (0.04-0.35); Eosinophils % (A) 1.5 %; HCT 40.5 % (37.2-46.3); HGB 12.9 g/dL (12.0-15.0); Lymphocytes # (A) 1.88 X 10*3/uL (0.90-5.00); Lymphocytes % (A) 21.6 %; MCH 29.4 pg (27.0-32.0); MCHC 31.9 g/dL (32.0-37.0); MCV 92.3 FL (80.0-97.0); Mean Platelet Volume 10.7 FL (9.5-12.2); Monocytes # (A) 0.64 X 10*3/uL (0.20-1.00); Monocytes % (A) 7.3 %; NRBC Per 100 WBC 0 X 10*3/uL (0.00-0.01); Neutrophils # (A) 6.01 X 10*3/uL (1.80-7.70); Neutrophils % (A) 68.9 %; Platelet Count 307 X 10*3/uL (140-440); RBC 4.39 X 10*6/uL (4.10-5.20); RDW 13.6 % (11.5-14.5); WBC 8.72 X 10*3/uL (4.50-10.00)
[2023-05-17 11:22] LABS: BUN/Creat Ratio 25.71 Ratio (12.00-20.00); Calcium 9.5 mg/dL (8.7-10.3); Carbon Dioxide 23.1 mmol/L (21.6-31.8); Chloride 103 mmol/L (96-109); Chol/HDL Ratio 5.24 Ratio; Glucose 94 mg/dL (70-110); LDL Cholesterol,Calculated 206.7 mg/dL (0.0-131.0); Potassium 5.2 mmol/L (3.5-5.5); Sodium 138 mmol/L (135-145)
[2023-05-17] MEDS ORDERED: NITROGLYCERIN SL TABS 0.4 MG TAB SUBLINGUAL PRN (13:02)
[2023-05-17] MEDS ORDERED: ALPRAZolam 0.25 MG TAB PO PRN (13:02)
[2023-05-17] MEDS ORDERED: ALPRAZolam 0.5 MG TAB PO PRN (13:02)
[2023-05-17] MEDS: ATORVASTATIN 80 MG TAB PO STA (14:21)
[2023-05-17] MEDS: ASPIRIN 325 MG TAB PO STA (14:21)
[2023-05-17] MEDS: SODIUM CHLORIDE 0.9% 1,000 ML in EMPTY BAG 1 BAG IV SCH (14:22)
[2023-05-17] MEDS: SODIUM CHLORIDE 0.9% 800 ML IV ONE (16:10)
[2023-05-17] MEDS: MIDAZOLAM 2 MG/2 ML VIAL IVP ONE (16:30)
[2023-05-17] MEDS: fentaNYL (PF) 50 MCG/1 ML VIAL IVP ONE (16:30)
[2023-05-17] MEDS: LIDOCAINE 1% INJ 10MG/ML (20 ML MDV) SQ ONE (16:31)
[2023-05-17] MEDS: VERAPAMIL SYRINGE (5 MG/10 ML) INTRAARTER ONE (16:32)
[2023-05-17] MEDS: IOPAMIDOL-370 100ML BTL INJ ONE (16:46)
[2023-05-17] MEDS ORDERED: RX INFO: IV CONTRAST WAS GIVEN 1 EACH MISC MISCELLANE PRN (18:39)
[2023-05-17] MEDS: ATORVASTATIN 80 MG TAB PO SCH (19:06)
--- NOTE | 2023-05-17 21:09 | P.CARDCATH ---
Description of Procedure: PROCEDURES PERFORMED: Left heart catheterization, bilateral coronary angiography, ultrasound guided arterial access INDICATION: Chest pain, history of CAD CONSENT:I have discussed the risks, benefits and alternative therapies for the above-mentioned procedure and for both sedation/analgesia as well as necessary blood product administration, if indicated, as they pertain to this patient. The patient has indicated understanding and acceptance of the risks and procedures discussed. PROCEDURE: After the risks, benefits and alternatives of the above mentioned procedure explained in detail with the patient, informed consent was obtained. Patient was taken to the catheterization lab and prepped and draped in usual fashion. Ultrasound guidance was used to assess for arterial access. 1% lidocaine was used to anesthetize the right radial artery. A 6-Bhutanese sheath was placed in the right radial artery using modified Seldinger technique and ultrasound guidance. Left coronary angiography was performed with a 5-Bhutanese JL 3.5 catheter. Unable to engage the RCA with a FR5 and AR2 and left to right collaterals noted to the ostium. Therefore subselective right coronary angiography was performed with a 6-Bhutanese AR2 catheter in various views. A 5- Bhutanese FR5 catheter was inserted into the left ventricle and pressure measure ments were obtained. The right radial sheath was removed and a TR band was placed with hemostasis achieved. The patient tolerated the procedure well. Patient was transported back to the post catheterization holding area in stable condition. Conscious Sedation: Patient was monitored under the direct supervision of myself for conscious sedation using Versed and fentanyl for a total duration of 15 minutes HEMODYNAMICS: Aorta: 115/63 LV: 113/3, LVEDP 12 SELECTIVE CORONARY ARTERIOGRAPHY: LEFT MAIN: The left main is a large caliber vessel which bifurcates into the LAD and circumflex. There is no significant stenosis. LEFT ANTERIOR DESCENDING CORONARY ARTERY: LAD is a large caliber vessel which wraps around to the apex. There is proximal LAD 10-20% stenosis in mid LAD 20% stenosis. There are jkyo-ef-yuxbf collaterals to a small caliber RCA feeding an acute marginal branch. LEFT CIRCUMFLEX CORONARY ARTERY: Left circumflex is a large caliber vessel which gives off a PDA and PLV branch and is the dominant vessel. There are mild luminal irregularities and an OM1 20% stenosis. RIGHT CORONARY ARTERY: The right coronary artery is a small caliber vessel which is noted by collaterals backfilling up to the ostium with 100% ostial RCA stenosis. The RCA is nondominant and supplies and acute marginal branch. FINAL IMPRESSION: 1. CAD as described above including 20% mid LAD, 20% on 1 and 100% small caliber nondominant RCA with mmhy-el-bgpyc collaterals 2. Normal left sided filling pressures PLAN: 1. Aggressive risk factor modification per most recent ACC/AHA guidelines. 2. 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 This is filled by [id number] collaterals and appears chronic. Continue with medical therapy.
[2023-05-17] MEDS: ACETAMINOPHEN TAB 325 MG TAB PO PRN (21:17)
[2023-05-18] MEDS ORDERED: HEPARIN SODIUM,PORCINE 10,000 UNIT in SODIUM CHLORIDE 0.9% 1,000 ML IRRIGATION PRN (07:00)
[2023-05-18] MEDS ORDERED: HEPARIN SODIUM,PORCINE (1 ML) 2,500 UNIT in SODIUM CHLORIDE 0.9% 250 ML IRRIGATION PRN (07:00)
[2023-05-18 08:04] LABS: African American GFR (CKD) >90 (>60 ml/min/1.73 sqM); Anion Gap 5 mmol/L; Blood Urea Nitrogen 14 mg/dL (7-17); Calcium 9.8 mg/dL (8.4-10.2); Carbon Dioxide 29 mmol/L (22-30); Chloride 104 mmol/L (98-107); Glucose 102 mg/dL (74-99); Non-African American GFR(CKD) >90 (>60 ml/min/1.73 sqM); Potassium 4.8 mmol/L (3.5-5.1); Sodium 138 mmol/L (137-145)
[2023-05-18] MEDS: ASPIRIN 81 MG PO SCH (08:30)
--- NOTE | 2023-05-18 09:35 | P.PN ---
Subjective HISTORY OF PRESENT ILLNESS: This is a 63-year-old female with a past medical history significant for heart disease, hyperlipidemia, COPD and nicotine dependence. 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 We have been asked to see the patient in consultation for chest pain. Patient examined at the bedside. Patient presented to the hospital with a chief complaint of chest pain. The patient states that she has not had insurance and has not seen a physician in approximately 10 years. She states that she does have an appointment to establish care in the cardiology office after going to her new PCP and was told she had an enlarged heart and a heart murmur. Patient states for the past month she has been getting a headache and chest pain. She states the pain will come on randomly and does not seem to be exertionally related. She states yesterday she had chest pain on the left side of her chest that went into her axilla and down her left arm to her elbow. She states the pain lasted for approximately 1 hour. She states that when she got to the emergency room they gave her Nitropaste which relieved her pain. She reports having another episode of chest pain this morning. The patient states she has a history of hyperlipidemia and used to take Lipitor although has not for many years. She stopped smoking about 11 days ago. She states she was a 1 pack/day smoker. She reports that she had a " major heart attack" approximately 20 years ago. She underwent an angiogram at that time at a hospital out of [facility]. She believes that she had 1 blockage but was told it was not significant enough to require stenting. She states she has not had any further cardiac catheterizations since that time. She reports having " 3-4 minor heart attacks" since that time. She states she has not had a stress test in over 5 years. She denies any alcohol use. Denies any drug use. Denies any family history of CAD. DIAGNOSTICS: - EKG reveals sinus mechanism with T wave inversions in V2V3, similar to previous EKG in December 2022 - Chest xray no acute cardiopulmonary process/disease. Left midlung streaky atelectasis. - CT brain: Negative for acute process - Laboratory data: WBC 8.9. Hemoglobin 14.1. Platelet count 361. Sodium 136. Potassium 5.1. BUN 19. Creatinine 0.72. Magnesium 1.9. Troponin negative x 1 - Current home cardiac medications include none. - No previous echocardiogram, stress test, or cardiac catheterization available for review in EMR 05/18/2023 Patient is status postcardiac catheterization yesterday with Dr. Koenig revealing 20% mid LAD, 20% OM1, and 100% small caliber nondominant RCA with [id number] collaterals and normal left-sided filling pressures. Medical management was recommended. Patient examined this morning at the bedside. She denies any further episodes of chest pain or pressure. She denies any shortness of breath. Vital signs are stable. She is hoping to be discharged home today. PHYSICAL EXAM: VITAL SIGNS: Reviewed. GENERAL: Well-developed in no acute distress. HEENT: Head is normocephalic. Pupils are equal, round. Sclerae anicteric. Mucous membranes of the mouth are moist. Neck supple. No JVD or thyromegaly LUNGS: Respirations even and unlabored. Lungs essentially clear to auscultation bilaterally. HEART: Regular rate and rhythm. S1 and S2 heard. Systolic murmur noted ABDOMEN: Soft. Nondistended. Nontender. EXTREMITIES: Normal range of motion. No clubbing or cyanosis. Peripheral pulses intact. No lower extremity edema NEUROLOGIC: Awake and alert. Oriented x 3. ASSESSMENT: Chest pain x 1 month Headache Reported history of coronary artery disease without stenting Hyperlipidemia, not on statin therapy outpatient due to lack of insurance per patient COPD Nicotine dependence Medication noncompliance due to lack of insurance PLAN: Continue current cardiac medications Patient is stable for discharge home today from a cardiac perspective She is to follow-up postdischarge in the office with Dr. Koenig Nurse practitioner note has been reviewed by physician. Signing provider agrees with the documented findings, assessment, and plan of care documented by MICROBIOLOGY PROFESSOR as a scribe. Objective - Vital Signs Vital signs: Vital Signs Temp 98.2 F 05/18/23 07:00 Pulse 67 05/18/23 07:00 Resp 15 05/18/23 07:00 BP 115/72 05/18/23 07:00 Pulse Ox 93 L 05/18/23 07:00 FiO2 Intake & Output 05/17/23 05/18/23 05/18/23 18:59 06:59 18:59 Intake Total 200 Balance 200 Intake: IV 200 Other: # Voids 3 2 # Bowel Movements 1 1 - Labs CBC & Chem 7: 05/17/23 07:02 02/17/24 07:12 Labs: Abnormal Lab Results - Last 24 Hours (Table) 05/17/23 05/17/23 05/18/23 Range/Units 07:00 07:02 07:12 MCHC 31.9 L (32.0-37.0) g/dL BUN/Creatinine Ratio 25.71 H (12.00-20.00) Ratio Glucose 102 H (74-99) mg/dL Triglycerides 160.00 H (0.00-149.00) mg/dL Cholesterol 295.00 H (0.00-200.00) mg/dL LDL Cholesterol, Calc 206.7 H (0.0-131.0) mg/dL
--- NOTE | 2023-05-18 09:42 | CA ---
Transthoracic Echo Report Name: Raquel Thomas Age: 63 Gender: F : 1960 Exam Date: 05/18/2023 07:17 Exam Location: [facility] Ht (in): 62 Wt (lb): 187 Ordering Physician: Coretta Little Attending/Referring Phys: [id number], Sidney Lay Ups Assembler Clary Stovall, MATTEO Procedure CPT: Indications: LV function, chest pain Cardiac Hx: Technical Quality: Fair Contrast 1: Total Dose (mL): Contrast 2: Total Dose (mL): MEASUREMENTS (Male / Female) Normal Values 2D ECHO LV Diastolic Diameter PLAX 3.6 cm 4.2 - 5.9 / 3.9 - 5.3 cm LV Systolic Diameter PLAX 2.2 cm IVS Diastolic Thickness 1.3 cm 0.6 - 1.0 / 0.6 - 0.9 cm LVPW Diastolic Thickness 1.2 cm 0.6 - 1.0 / 0.6 - 0.9 cm LV Relative Wall Thickness 0.7 RV Internal Dim ED PLAX 3.4 cm LA Systolic Diameter LX 3.5 cm 3.0 - 4.0 / 2.7 - 3.8 cm LA Volume 37.8 cm??? 18 - 58 / 22 - 52 cm??? LA Volume Index 19.3 cm???/m??? 16 - 28 cm???/m??? M-MODE Aortic Root Diameter MM 3.1 cm MV E Point Septal Separation 0.3 cm DOPPLER AV Peak Velocity 160.3 cm/s AV Peak Gradient 10.3 mmHg MV Area PHT 2.3 cm??? Mitral E Point Velocity 73.9 cm/s Mitral A Point Velocity 85.3 cm/s Mitral E to A Ratio 0.9 MV Deceleration Time 327.7 ms TR Peak Velocity 197.4 cm/s TR Peak Gradient 15.6 mmHg Right Ventricular Systolic Press 20.6 mmHg FINDINGS Left Ventricle Left ventricular ejection fraction is estimated at 55-60 %. Moderately increased septal wall thickness. Mildly increased posterior wall thickness. Small left ventricular cavity. Right Ventricle Mild right ventricular dilatation. . Right Atrium Normal right atrial size. Left Atrium Normal left atrial size. Mitral Valve Mitral valve thickened. No mitral stenosis, regurgitation or prolapse. Aortic Valve Aortic valve not well visualized. No aortic valve stenosis or regurgitation. Tricuspid Valve Structurally normal tricuspid valve. Mild tricuspid regurgitation. Pulmonic Valve Pulmonic valve not well visualized. No pulmonic regurgitation. Pericardium No pericardial effusion. Aorta Normal size aortic root and proximal ascending aorta. CONCLUSIONS Normal LV systolic function Mildly dilated right ventricle Previewed by: Dr. Gamaliel Mckeon MD (Electronically Signed) Final Date: 18 May 2023 09:41
--- NOTE | 2023-05-18 14:14 | P.PN ---
Subjective Progress Note Date: 05/17/23 63-year-old patient with past medical history significant for COPD presents to the emergency department with complaints of chest pain and shortness of breath that started earlier today. Patient states she has history of COPD and chronic tobacco use however she has not smoked in 1 week. Patient stated that chest pain has been diffuse pressure. Patient denies chest pain radiation. Workup in the ER included an EKG which was essentially negative. Serial troponins were obtained which were initially negative as well * Blood work obtained include WBC within normal limits hemoglobin and platelet count within normal limits * Serum chemistry shows sodium 136 potassium 5.1, BUN and creatinine essentially normal, calcium within normal limits * Patient to be admitted to medical floor with consultation from cardiology * -- Patient is scheduled for cardiac catheterization this afternoon Objective - Vital Signs Vital signs: Vital Signs Temp 97.5 F L 05/17/23 07:30 Pulse 65 05/17/23 07:30 Resp 16 05/17/23 08:00 BP 104/62 05/17/23 07:30 Pulse Ox 94 L 05/17/23 07:30 FiO2 Intake & Output 05/16/23 05/17/23 05/17/23 18:59 06:59 18:59 Weight 84.822 kg 84.822 kg Other: # Voids 3 - Exam GENERAL: The patient is alert and oriented x3, not in any acute distress. Well developed, well nourished. HEENT: Pupils are round and equally reacting to light. EOMI. No scleral icterus. No conjunctival pallor. Normocephalic, atraumatic. No pharyngeal erythema. No thyromegaly. CARDIOVASCULAR: S1 and S2 present. No murmurs, rubs, or gallops. PULMONARY: Chest is clear to auscultation, no wheezing or crackles. ABDOMEN: Soft, nontender, nondistended, normoactive bowel sounds. No palpable organomegaly. MUSCULOSKELETAL: No joint swelling or deformity. EXTREMITIES: No cyanosis, clubbing, or pedal edema. NEUROLOGICAL: Gross neurological examination did not reveal any focal deficits. SKIN: No rashes. - Labs CBC & Chem 7: 05/17/23 07:02 05/18/23 07:12 Labs: Abnormal Lab Results - Last 24 Hours (Table) 05/17/23 05/17/23 Range/Units 07:00 07:02 MCHC 31.9 L (32.0-37.0) g/dL BUN/Creatinine Ratio 25.71 H (12.00-20.00) Ratio Triglycerides 160.00 H (0.00-149.00) mg/dL Cholesterol 295.00 H (0.00-200.00) mg/dL LDL Cholesterol, Calc 206.7 H (0.0-131.0) mg/dL Assessment and Plan Assessment: * Chest pain rule out ACS * History of COPD * Chronic tobacco use * In regards to chest pain, serial troponins ordered, cardiology consulted sublingual nitroglycerin * In regards to history of COPD as needed breathing treatments * In regards to chronic tobacco use nicotine patch ordered * CODE STATUS is full code
[2023-05-18 20:34] VITALS: RESP 18
[2023-05-19 08:03] VITALS: BP 123/72; PULSE 71; TEMP 98.8
--- NOTE | 2023-05-19 09:12 | P.PN ---
Subjective HISTORY OF PRESENT ILLNESS: This is a 63-year-old female with a past medical history significant for heart disease, hyperlipidemia, COPD and nicotine dependence. Patient does not follow with a opal polisher. We have been asked to see the patient in consultation for chest pain. Patient examined at the bedside. Patient presented to the hospital with a chief complaint of chest pain. The patient states that she has not had insurance and has not seen a physician in approximately 10 years. She states that she does have an appointment to establish care in the cardiology office after going to her new PCP and was told she had an enlarged heart and a heart murmur. Patient states for the past month she has been getting a headache and chest pain. She states the pain will come on randomly and does not seem to be exertionally related. She states yesterday she had chest pain on the left side of her chest that went into her axilla and down her left arm to her elbow. She states the pain lasted for approximately 1 hour. She states that when she got to the emergency room they gave her Nitropaste which relieved her pain. She reports having another episode of chest pain this morning. The patient states she has a history of hyperlipidemia and used to take Lipitor although has not for many years. She stopped smoking about 11 days ago. She states she was a 1 pack/day smoker. She reports that she had a " major heart attack" approximately 20 years ago. She underwent an angiogram at that time at a hospital out of [facility]. She believes that she had 1 blockage but was told it was not significant enough to require stenting. She states she has not had any further cardiac catheterizations since that time. She reports having " 3-4 minor heart attacks" since that time. She states she has not had a stress test in over 5 years. She denies any alcohol use. Denies any drug use. Denies any family history of CAD. DIAGNOSTICS: - EKG reveals sinus mechanism with T wave inversions in V2V3, similar to previous EKG in December 2022 - Chest xray no acute cardiopulmonary process/disease. Left midlung streaky atelectasis. - CT brain: Negative for acute process - Laboratory data: WBC 8.9. Hemoglobin 14.1. Platelet count 361. Sodium 136. Potassium 5.1. BUN 19. Creatinine 0.72. Magnesium 1.9. Troponin negative x 1 - Current home cardiac medications include none. - No previous echocardiogram, stress test, or cardiac catheterization available for review in EMR 05/18/2023 Patient is status postcardiac catheterization yesterday with Dr. oKenig revealing 20% mid LAD, 20% OM1, and 100% small caliber nondominant RCA with mwuq-sw-[id number] collaterals and normal left-sided filling pressures. Medical management was recommended. Patient examined this morning at the bedside. She denies any further episodes of chest pain or pressure. She denies any shortness of breath. Vital signs are stable. She is hoping to be discharged home today. 05/19/2023 Patient examined this morning. Patient denies chest pain or pressure. She denies shortness of breath. Vital signs are stable. PHYSICAL EXAM: VITAL SIGNS: Reviewed. GENERAL: Well-developed in no acute distress. HEENT: Head is normocephalic. Pupils are equal, round. Sclerae anicteric. Mucous membranes of the mouth are moist. Neck supple. No JVD or thyromegaly LUNGS: Respirations even and unlabored. Lungs essentially clear to auscultation bilaterally. HEART: Regular rate and rhythm. S1 and S2 heard. Systolic murmur noted ABDOMEN: Soft. Nondistended. Nontender. EXTREMITIES: Normal range of motion. No clubbing or cyanosis. Peripheral pulses intact. No lower extremity edema NEUROLOGIC: Awake and alert. Oriented x 3. ASSESSMENT: Chest pain x 1 month, status postcardiac catheterization as above Headache Reported history of coronary artery disease without stenting Hyperlipidemia, not on statin therapy outpatient due to lack of insurance per patient COPD Nicotine dependence Medication noncompliance due to lack of insurance PLAN: Continue current cardiac medications Patient is stable for discharge home today from a cardiac perspective She is to follow-up postdischarge in the office with Dr. Koenig Nurse practitioner note has been reviewed by physician. Signing provider agrees with the documented findings, assessment, and plan of care documented by JAVA J2EE APPLICATION DEVELOPER as a scribe. Objective - Vital Signs Vital signs: Vital Signs Temp 98.8 F 05/19/23 07:00 Pulse 71 05/19/23 07:00 Resp 18 05/19/23 07:00 BP 123/72 05/19/23 07:00 Pulse Ox 93 L 05/19/23 07:00 FiO2 Intake & Output 05/18/23 05/19/23 05/19/23 18:59 06:59 18:59 Other: # Voids 4 2 # Bowel Movements 1 1 - Labs CBC & Chem 7: 05/17/23 07:02 05/18/23 07:12
--- NOTE | 2023-05-19 10:22 | P.DS ---
Providers Date of admission: 05/16/23 10:58 Expected date of discharge: 05/18/23 Attending physician: Kaleigh Whitman MD Consults: 05/16/23 10:58 Consult Physician Urgent Consulting Provider: [facility] Consult Reason/Comments: Chest pain Do you want consulting provider notified?: Yes Primary care physician: [facility] Course: 63-year-old patient with past medical history significant for COPD presents to the emergency department with complaints of chest pain and shortness of breath that started earlier today. Patient states she has history of COPD and chronic tobacco use however she has not smoked in 1 week. Patient stated that chest pain has been diffuse pressure. Patient denies chest pain radiation. Workup in the ER included an EKG which was essentially negative. Serial troponins were obtained which were initially negative as well * Blood work obtained include WBC within normal limits hemoglobin and platelet count within normal limits * Serum chemistry shows sodium 136 potassium 5.1, BUN and creatinine essentially normal, calcium within normal limits * Patient to be admitted to medical floor with consultation from cardiology * * * Chest pain rule out ACS * History of COPD * Chronic tobacco use * In regards to chest pain, serial troponins ordered, cardiology consulted sublingual nitroglycerin * In regards to history of COPD as needed breathing treatments * In regards to chronic tobacco use nicotine patch ordered * CODE STATUS is full code * -- Patient is scheduled for cardiac catheterization this afternoon Patient is status postcardiac catheterization yesterday with Dr. Koenig revealing 20% mid LAD, 20% OM1, and 100% small caliber nondominant RCA with zauq-[id number]-[id number] collaterals and normal left-sided filling pressures. Medical management was recommended. Plan - Discharge Summary New Discharge Prescriptions: New Aspirin [Adult Low Dose Aspirin EC] 81 mg PO DAILY 30 Days #30 tab Atorvastatin [Lipitor] 80 mg PO HS 30 Days #30 tab Continue Ipratropium/Albuter 20-100Mcg [Combivent Respimat 20-100Mcg Inhaler] 1 puff INHALATION RT-Q6H PRN PRN Reason: Shortness Of Breath Discharge Medication List Ipratropium/Albuter 20-100Mcg [Combivent Respimat 20-100Mcg Inhaler] 1 puff INHALATION RT-Q6H PRN 05/16/23 [History] Aspirin [Adult Low Dose Aspirin EC] 81 mg PO DAILY 30 Days #30 tab 05/19/23 [Rx] Atorvastatin [Lipitor] 80 mg PO HS 30 Days #30 tab 05/19/23 [Rx] Follow up Appointment(s)/Referral(s): William Koenig DO [STAFF PHYSICIAN] - 1 Week (Keep follow up appt that is already scheduled with cardiology) Alma Jasso MD [Primary Care Provider] - 1-2 days Patient Instructions/Handouts: *[facility] - After Heart Catheterization - Senior Supplier Quality Engineer Instructions Discharge Disposition: HOME SELF-CARE
--- NOTE | 2023-05-22 14:35 | P.DS ---
Providers Date of admission: 05/16/23 10:58 Expected date of discharge: 05/19/23 Attending physician: Kaleigh Whitman MD Consults: 05/16/23 10:58 Consult Physician Urgent Consulting Provider: [facility] Consult Reason/Comments: Chest pain Do you want consulting provider notified?: Yes Primary care physician: [facility] Course: 63-year-old patient with past medical history significant for COPD presents to the emergency department with complaints of chest pain and shortness of breath that started earlier today. Patient states she has history of COPD and chronic tobacco use however she has not smoked in 1 week. Patient stated that chest pain has been diffuse pressure. Patient denies chest pain radiation. Workup in the ER included an EKG which was essentially negative. Serial troponins were obtained which were initially negative as well * Blood work obtained include WBC within normal limits hemoglobin and platelet count within normal limits * Serum chemistry shows sodium 136 potassium 5.1, BUN and creatinine essentially normal, calcium within normal limits * Patient to be admitted to medical floor with consultation from cardiology * * * Chest pain rule out ACS * History of COPD * Chronic tobacco use * In regards to chest pain, serial troponins ordered, cardiology consulted sublingual nitroglycerin * In regards to history of COPD as needed breathing treatments * In regards to chronic tobacco use nicotine patch ordered * CODE STATUS is full code * -- Patient is scheduled for cardiac catheterization this afternoon Patient is status postcardiac catheterization yesterday with Dr. Koenig revealing 20% mid LAD, 20% OM1, and 100% small caliber nondominant RCA with znjd-kv-tvanp collaterals and normal left-sided filling pressures. Medical management was recommended. Plan - Discharge Summary New Discharge Prescriptions: New Aspirin [Adult Low Dose Aspirin EC] 81 mg PO DAILY 30 Days #30 tab Atorvastatin [Lipitor] 80 mg PO HS 30 Days #30 tab Continue Ipratropium/Albuter 20-100Mcg [Combivent Respimat 20-100Mcg Inhaler] 1 puff INHALATION RT-Q6H PRN PRN Reason: Shortness Of Breath Discharge Medication List Ipratropium/Albuter 20-100Mcg [Combivent Respimat 20-100Mcg Inhaler] 1 puff INHALATION RT-Q6H PRN 05/16/23 [History] Aspirin [Adult Low Dose Aspirin EC] 81 mg PO DAILY 30 Days #30 tab 05/19/23 [Rx] Atorvastatin [Lipitor] 80 mg PO HS 30 Days #30 tab 05/19/23 [Rx] Follow up Appointment(s)/Referral(s): William Koenig DO [STAFF PHYSICIAN] - 1 Week (Keep follow up appt that is already scheduled with cardiology) Alma Jasso MD [Primary Care Provider] - 1-2 days Patient Instructions/Handouts: *[facility] - After Heart Catheterization - Extractions Technician Instructions Discharge Disposition: HOME SELF-CARE
== END 2023-05-19 11:07 | disposition home or self-care (01) ==
LOC: EC 09:34 → 6NMEDSUR 10:58
PROVIDERS: ADMIT Internal Medicine; ATTEND Internal Medicine
DX: I25.10 Atherosclerotic heart disease of native coronary artery without angina pectoris (principal); Z79.899 Other long term (current) drug therapy; Z79.52 Long term (current) use of systemic steroids; Z88.5 Allergy status to narcotic agent; Z88.8 Allergy status to other drugs, medicaments and biological substances; J44.9 Chronic obstructive pulmonary disease, unspecified; E78.5 Hyperlipidemia, unspecified; Z87.891 Personal history of nicotine dependence; Z91.148 Patient's other noncompliance with medication regimen for other reason; Z59.7 Insufficient social insurance and welfare support
CPT/HCPCS: 96361; 96365; 96375; 96367; 99285; 36415; 94640; 93005; 93306; 93458; 76937; 80061; 80053; 80048 ×2; 83735; 84484; 85025 ×2; 85610; 85730; 71046; 70450; G0378 ×4; C1769; C1894; J2250; J2001; J1885; Q9967; J3010

== ENCOUNTER → 2023-05-21 | Outpatient (CLI) | payer MEDICARE ==
--- NOTE | 2023-05-24 08:37 | CTL ---
EXAMINATION TYPE: CT Low Dose Lung DATE OF EXAM: 05/21/2023 1:58 PM CLINICAL INDICATION:Female, 63 years old with history of Z87.891 HX NICOTINE DEPENDENCE; personal hx of nicotine dependence 1ppd X 52years not currently smoking , history of tobacco use. COMPARISON: None. TECHNIQUE: CT scan of the chest obtained without contrast from approximately the lung apices through the upper abdomen. Axial, coronal and sagittal reformatted images were obtained. Low dose technique w as utilized for nodule screening purposes. CT DLP: 86.3 mGycm, Automated exposure control for dose reduction was used. CT Contrast: IV contrast used: None. Oral contrast used: None. FINDINGS: Lack of intravenous contrast and low dose technique limits the evaluation of the vascular and soft ti ssue structures. LUNGS: No evidence of pulmonary fibrosis. No evidence of focal consolidation or infiltrate. No signif icant emphysematous changes. Some linear, bandlike, and triangular opacities in the lingular region a nd RML, most suggestive of scarring or atelectasis. NODULES: Right upper lobe 6.4 mm solid nodule, image 42 series 4. Right lower lobe 6.3 mm solid nodule just above the diaphragm, image 214. A few additional scattered tiny nodular densities bilaterally, on the order of 2 mm. PLEURA: No sizeable pleural effusion or pneumothorax. AIRWAY: Central airways are patent. LOWER NECK: No significant findings. MEDIASTINUM: No evidence of enlarged mediastinal or hilar nodes, in the limits of noncontrast exam.. HEART: Mild cardiomegaly. Moderate coronary artery calcification and/or stents. No appreciable perica rdial effusion. VASCULATURE: Mild to moderate atherosclerotic calcifications of the aorta and branches. Ascending ao rta is 3.6 CM, descending is 2.4 CM. Aorta is considered mildly ectatic in its ascending segment. Pu lmonary trunk measures 2.6 CM, normal in size. Vessels otherwise not further assessed without contra st. SOFT TISSUES/LYMPH NODES: Unremarkable soft tissues. No axillary adenopathy. UPPER ABDOMEN: No significant findings. Possible element of hepatic steatosis. MUSCULOSKELETAL: Generalized osteopenia. Mild degenerative changes of the thoracic spine. No acute os seous abnormality. IMPRESSION: 1. A few bilateral solid appearing lung nodules, the largest just over 6 mm in the right upper and l ower lobes. 2. Opacities in the lingula and RML, favored to be atelectasis/scarring. This will be reassessed on follow-up imaging. CT LUNG-RADS AND FOLLOWUP RECOMMENDATION: * Lung-RADS Category 3, Probably Benign. Based on imaging features or behavior. * Recommend 6 month follow-up LDCT. C Modifier (Personal history of lung cancer?): No. S Modifier (Other clinically significant or potentially significant findings?): Yes Other significant or potentially significant abnormalities: Moderate coronary artery calcification. Recommend smoking cessation (if current smoker), or continuation of smoking cessation (if prior smoke r). Annual screening for lung cancer with low-dose computed tomography is recommended in adults ages 55 to 77 years who have a 30 pack-year smoking history and currently smoke or have quit within the pa st 15 years. Screening should be discontinued once a person has not smoked for 15 years or develops a health problem that substantially limits life expectancy or the ability or willingness to have curat lauren lung surgery. Lung-RADS v.202 Link Here [email or web address]
== END | disposition home or self-care (01) ==
LOC: RADCTMAIN 13:35
PROVIDERS: ATTEND Family Medicine
DX: Z12.2 Encounter for screening for malignant neoplasm of respiratory organs (principal); J18.9 Pneumonia, unspecified organism; R91.8 Other nonspecific abnormal finding of lung field; Z87.891 Personal history of nicotine dependence
CPT/HCPCS: 71271

== ENCOUNTER → 2023-06-14 | Outpatient (CLI) | payer MEDICARE ==
--- NOTE | 2023-06-14 09:44 | MM ---
Reason for Exam: Clinical finding. Indicated Problems: Pain of both sides (Global) for 1 Year(s) : tenderness. Patient History: Menarche at age 10. First Full-Term at age 18. Postmenopausal. Patient has history of breast feeding. Maternal aunt had breast cancer at or over age 50. Risk Values: Teresa 5 year model risk: 1.2%. NCI Lifetime model risk: 5.5%. Prior Study Comparison: No prior studies available for comparison. Tissue Density: There are scattered areas of fibroglandular density. Findings: Analyzed By CAD. There are a couple benign oil cyst calcifications on the right. On the left, located at the 3:00 position, posteriorly, there is an oval, circumscribed, isodense mass for which further ultrasound evaluation is recommended. Otherwise, no discrete abnormality is seen. Overall Assessment: Incomplete: need additional imaging evaluation, BI-RAD 0 Management: Diagnostic Breast Ultrasound of the left breast. Electronically signed and approved by: Marbella Suarez M.D. Radiologist
--- NOTE | 2023-06-14 10:20 | USB ---
Reason for Exam: Additional evaluation requested from abnormal screening. Patient History: Menarche at age 10. First Full-Term at age 18. Postmenopausal. Patient has history of breast feeding. Maternal aunt had breast cancer at or over age 50. Risk Values: Teresa 5 year model risk: 1.2%. NCI Lifetime model risk: 5.5%. Technique: Method: Targeted. Findings: The lateral section of the breast of the left breast, the axilla of the left breast and the retroareolar of the left breast were scanned. Targeted ultrasound lateral aspect to the 4:00 left breast including scanning of the subareolar region and axilla. At the 3:00 position, 10 cm from the nipple, there is a very subtle circumscribed isoechoic lesion measuring 10 x 9 x 4 mm, likely mammographic correlate. There is posterior through transmission. A benign etiology is suspected, such as fibroadenoma. This can be followed by mammogram. Overall Assessment: Probably benign, BI-RAD 3 Management: Diagnostic Mammogram of the left breast in 6 months. A clinical breast exam by your physician is recommended on an annual basis and results should be correlated with mammographic findings. This exam should not preclude additional follow-up of suspicious palpable abnormalities. Results were given to the patient verbally at the time of exam. Electronically signed and approved by: Marbella Suarez M.D. Radiologist
== END | disposition home or self-care (01) ==
LOC: RADMAMWWP 09:01
PROVIDERS: ATTEND Family Medicine
DX: N64.4 Mastodynia (principal); Z80.3 Family history of malignant neoplasm of breast; Z78.0 Asymptomatic menopausal state
CPT/HCPCS: 77066; 76642; G0279; 77062

== ENCOUNTER 2023-10-08 07:37 | Day surgery (SDC) | payer MEDICARE ==
[2023-10-08 08:08] VITALS: TEMP 97.2
[2023-10-08] MEDS: LACTATED RINGERS 1,000 ML IV SCH (08:08)
[2023-10-08] MEDS ORDERED: PROPOFOL 10 MG/ML 20 ML VIAL IV ONE (08:21)
[2023-10-08] MEDS ORDERED: LIDOCAINE 1% INJ 10MG/ML (20 ML MDV) ONE (08:21)
--- NOTE | 2023-10-08 08:24 | P.GSHP ---
History of Present Illness H&P Date: 10/08/23 Chief Complaint: Colon cancer screening 63-year-old female here for colonoscopy. She has not had 1 previously. Patient says she has chronic issues with intermittent diarrhea and constipation. History of known hemorrhoids she states. No family history of colon cancer. Past Medical History Past Medical History: Coronary Artery Disease (CAD), COPD, Hyperlipidemia Additional Past Medical History / Comment(s): hemorrhoids, alternating constipation or diarrhea, recent blood in stool, gallbladder problems currently History of Any Multi-Drug Resistant Organisms: None Reported Past Surgical History: Section Additional Past Surgical History / Comment(s): C/S x4, laparoscopy, pain procedures, colonscopy Past Anesthesia/Blood Transfusion Reactions: No Reported Reaction Additional Past Anesthesia/Blood Transfusion Reaction / Comment(s): no hx. of blood transfusion reaction Smoking Status: Former smoker Medications and Allergies Home Medications Medication Instructions Recorded Confirmed Type Aspirin [Adult Low Dose Aspirin EC] 81 mg PO DAILY 30 Days #30 tab 05/19/23 10/08/23 Rx Atorvastatin [Lipitor] 80 mg PO HS 30 Days #30 tab 05/19/23 10/08/23 Rx Albuterol Inhaler [Ventolin Hfa 1 - 2 puff INHALATION Q6H PRN 10/02/23 10/08/23 History Inhaler] Budesonide/Formoterol Fumarate 2 puff INHALATION BID 10/02/23 10/08/23 History [Breyna 160-4.5 Mcg Inhaler] Ipratropium-Albuterol Nebulize 3 ml INHALATION TID PRN 10/02/23 10/08/23 History [Duoneb 0.5 mg-3 mg/3 ml Soln] Allergies Allergy/AdvReac Type Severity Reaction Status Date / Time codeine Allergy Nausea & Verified 10/02/23 14:57 Vomiting cyclobenzaprine Allergy itching, Verified 10/02/23 14:57 [From Flexeril] feels like things are crawling on her morphine Allergy Nausea & Verified 10/02/23 14:57 Vomiting Surgical - Exam Vital Signs Temp Pulse Resp BP Pulse Ox 97.2 F L 70 16 114/66 95 10/08/23 08:02 10/08/23 08:02 10/08/23 08:02 10/08/23 08:02 10/08/23 08:02 Physical exam: General: Well-developed, well-nourished HEENT: Normocephalic, sclerae nonicteric Abdomen: Nontender, nondistended Extremities: No edema Neuro: Alert and oriented Assessment and Plan (1) Colon cancer screening Narrative/Plan: Will proceed with colonoscopy at this time. Current Visit: Yes Status: Acute Code(s): Z12.11 - ENCOUNTER FOR SCREENING FOR MALIGNANT NEOPLASM OF COLON SNOMED Code(s): 265438202
--- NOTE | 2023-10-08 08:47 | P.PCN ---
Date of Procedure: 10/08/23 Procedure(s) Performed: PREOPERATIVE DIAGNOSIS: Colon cancer screening POSTOPERATIVE DIAGNOSIS: Colon polyps, hemorrhoids PROCEDURE: Colonoscopy with snare polypectomy ANESTHESIA: MAC SURGEON: Saman Luciano M.D. SPECIMENS: Polyps ENDOSCOPIC PROCEDURE: The patient was placed on the endoscopy table in the left decubitus position. The Olympus colonoscope was inserted into the anus and passed under direct visualization to the base of the cecum. The appendiceal orifice was visualized. From that point the scope was slowly withdrawn inspecting all surfaces carefully. There were no neoplastic inflammatory or polypoid lesions throughout the cecum or ascending colon. In the proximal transverse colon 2 small polyps were both noted and removed using the snare with cautery technique. The remainder of the transverse and descending colon appeared normal. A small polyp in the sigmoid was noted and removed in a similar fashion. In the rectum there were 2 polyps seen both removed using the snare with cautery technique. The largest was in proximal rectum at 12 cm measuring 1.5 cm. Patient has small internal and external hemorrhoids on rectal exam. No visible diverticulosis. The patient was taken to the recovery room in stable condition per anesthesia guidelines. RECOMMENDATIONS: Await biopsy results. Anticipate repeat colonoscopy 3 years given the multiple polyps seen on today's study.
[2023-10-08 09:06] VITALS: BP 105/66; PULSE 62; RESP 15
== END 2023-10-08 09:20 | disposition home or self-care (01) ==
LOC: ORWHC2ENDO 07:37
PROVIDERS: ATTEND Surgery
DX: K64.8 Other hemorrhoids (principal); K64.4 Residual hemorrhoidal skin tags; K21.9 Gastro-esophageal reflux disease without esophagitis; D12.3 Benign neoplasm of transverse colon; D12.5 Benign neoplasm of sigmoid colon; D12.8 Benign neoplasm of rectum; I25.10 Atherosclerotic heart disease of native coronary artery without angina pectoris; E78.5 Hyperlipidemia, unspecified; Z88.8 Allergy status to other drugs, medicaments and biological substances; Z88.5 Allergy status to narcotic agent; Z79.82 Long term (current) use of aspirin; Z79.02 Long term (current) use of antithrombotics/antiplatelets; Z79.51 Long term (current) use of inhaled steroids; Z87.19 Personal history of other diseases of the digestive system; Z87.891 Personal history of nicotine dependence
CPT/HCPCS: 88305; 45385; J2001; J2704

== ENCOUNTER → 2024-01-03 | Outpatient (CLI) | payer MEDICARE ==
--- NOTE | 2024-01-03 14:57 | CT ---
EXAMINATION TYPE: CT chest w con CT DLP: 653 mGycm, Automated exposure control for dose reduction was used. DATE OF EXAM: 01/03/2024 2:20 PM COMPARISON: CT low dose lung 05/21/2023 CLINICAL INDICATION:Female, 63 years old with history of R91.1 SOLITARY PULMONARY NODULE; PHH, SOLITA RY PULMONARY NODULE TECHNIQUE: Multiple axial images were obtained through the chest following the administration of 100 cc of Isovue 300. . Coronal and sagittal reformats reviewed. FINDINGS: LUNGS/ PLEURA: No pleural effusion, pneumothorax, focal consolidation. Linear atelectasis within the lingula and right middle lobe. Stable right apical 5.3 mm pulmonary nodule (series 4, image 9), Prev iously 6.4 mm. Stable right lower lobe pleural dome 5.7 mm pulmonary nodule (series 4, image 24), pre viously 6.3 mm. Stable medial left upper lobe 4.5 mm pulmonary nodule (series 4, image 26), previousl y 4.2 mm. AIRWAY: Patent and unremarkable.. HEART: Size within normal limits. No pericardial effusion. Small coronary artery calcifications. MEDIASTINUM: No evidence of adenopathy. VASCULATURE: No aortic aneurysm. Mild atherosclerotic calcification of the aorta and its branches. MUSCULOSKELETAL: No acute osseous abnormalities SOFT TISSUES/LYMPH NODES: Unremarkable. LOWER NECK: No significant findings. UPPER ABDOMEN: Diffuse low-attenuation to the liver parenchyma. IMPRESSION: 1. Few stable pulmonary nodules measuring up to 5.7 mm. No new or enlarging pulmonary nodules. Follow -up CT low-dose lung in one year is recommended. 2. Hepatic steatosis. [facility], , 01/03/2024 2:55 PM
== END | disposition home or self-care (01) ==
LOC: RADCTMAIN 13:46
PROVIDERS: ATTEND Internal Medicine Critical Care Medicine
DX: R91.8 Other nonspecific abnormal finding of lung field (principal); K76.0 Fatty (change of) liver, not elsewhere classified
CPT/HCPCS: 71260; Q9967

== ENCOUNTER 2024-02-25 18:38 | Emergency (ER) | payer MEDICARE ==
[2024-02-25 18:54] VITALS: TEMP 98.4
--- NOTE | 2024-02-25 18:56 | ED ---
Dizziness HPI - General Chief Complaint: Dizziness Stated Complaint: vertigo/shakey/dizzy Time Seen by Provider: 02/25/24 18:56 Source: patient, RN notes reviewed, old records reviewed Mode of arrival: wheelchair Limitations: no limitations - History of Present Illness Initial Comments: This is a 63-year-old female to the ER for evaluation today. Patient presents today for evaluation regards to dizziness and vertiginous symptoms room spinning symptoms that she has had in the past but this started this afternoon around noon and persisted through the night. Patient's came over work help to get around to get to bed she laid down and rested when she awoke she was still having symptoms symptoms of the room spinning around MD Complaint: dizziness, lightheadedness -: hour(s) Description: sense of movement History of Same: Yes History of Trauma: Yes Severity: moderate Improves With: nothing Worsens With: nothing Associated Symptoms: denies other symptoms - Related Data Home Medications Medication Instructions Recorded Confirmed Albuterol Inhaler [Ventolin Hfa 1 - 2 puff INHALATION Q6H PRN 10/02/23 10/08/23 Inhaler] Budesonide/Formoterol Fumarate 2 puff INHALATION BID 10/02/23 10/08/23 [Breyna 160-4.5 Mcg Inhaler] Ipratropium-Albuterol Nebulize 3 ml INHALATION TID PRN 10/02/23 10/08/23 [Duoneb 0.5 mg-3 mg/3 ml Soln] Previous Rx's Medication Instructions Recorded Aspirin [Adult Low Dose Aspirin EC] 81 mg PO DAILY 30 Days #30 tab 05/19/23 Atorvastatin [Lipitor] 80 mg PO HS 30 Days #30 tab 05/19/23 Allergies Allergy/AdvReac Type Severity Reaction Status Date / Time codeine Allergy Nausea & Verified 02/25/24 18:48 Vomiting cyclobenzaprine Allergy itching, Verified 02/25/24 18:48 [From Flexeril] feels like things are crawling on her morphine Allergy Nausea & Verified 02/25/24 18:48 Vomiting Review of Systems ROS Statement: Those systems with pertinent positive or pertinent negative responses have been documented in the HPI. ROS Other: All systems not noted in ROS Statement are negative. Past Medical History Past Medical History: COPD History of Any Multi-Drug Resistant Organisms: None Reported Past Surgical History: Section, Orthopedic Surgery Past Psychological History: No Psychological Hx Reported Smoking Status: Former smoker Past Alcohol Use History: Occasional Past Drug Use History: None Reported General Exam Limitations: no limitations General appearance: alert, in no apparent distress Head exam: Present: atraumatic, normocephalic, normal inspection Eye exam: Present: normal appearance, PERRL, EOMI. Absent: scleral icterus, conjunctival injection, periorbital swelling ENT exam: Present: normal exam, mucous membranes moist Neck exam: Present: normal inspection. Absent: tenderness, meningismus, lymphadenopathy Respiratory exam: Present: normal lung sounds bilaterally. Absent: respiratory distress, wheezes, rales, rhonchi, stridor Cardiovascular Exam: Present: regular rate, normal rhythm, normal heart sounds. Absent: systolic murmur, diastolic murmur, rubs, gallop, clicks GI/Abdominal exam: Present: soft, normal bowel sounds. Absent: distended, tenderness, guarding, rebound, rigid Extremities exam: Present: normal inspection, full ROM, normal capillary refill. Absent: tenderness, pedal edema, joint swelling, calf tenderness Back exam: Present: normal inspection Neurological exam: Present: alert, oriented X3, CN II-XII intact Psychiatric exam: Present: normal affect, normal mood Skin exam: Present: warm, dry, intact, normal color. Absent: rash Course Vital Signs 02/25/24 02/25/24 18:48 20:00 Temperature 98.4 F Pulse Rate 74 68 Respiratory 20 18 Rate Blood Pressure 109/68 132/85 O2 Sat by Pulse 93 L 97 Oximetry - Reevaluation(s) Reevaluation #1: 02/25/24 19:36 Medical records reviewed Reevaluation #4: 02/25/24 19:36 Was pt. sent in by a medical professional or institution (, PA, [employer], urgent care, hospital, or snf...) When possible be specific @ -no Did you speak to anyone other than the patient for history (EMS, parent, family, police, friend...)? What history was obtained from this source @ -no Did you review nursing and triage notes (agree or disagree)? Why? @ -agree Are old charts reviewed (outside hosp., previous admission, EMS record, old EKG, old radiological studies, urgent care reports/EKG's, snf records)? Report findings @ -yes Differential Diagnosis (chest pain, altered mental status, abdominal pain women, abdominal pain men, vaginal bleeding, weakness, fever, dyspnea, syncope, headache, dizziness, GI bleed, back pain, seizure, CVA, palpatations, mental health, musculoskeletal)? @ -prior EKG interpreted by me (3pts min.). @ -yes X-rays interpreted by me (1pt min.). @ -yes negative for acute disease CT interpreted by me (1pt min.). @ -no U/S interpreted by me (1pt. min.). @ -no What testing was considered but not performed or refused? (CT, X-rays, U/S, lab s)? Why? @ -none What meds were considered but not given or refused? Why? @ -none Did you discuss the management of the patient with other professionals (professionals i.e. , PA, [employer], lab, RT, psych nurse, social science instructor, nutrition tech, teacher, upscale security officer, residential case manager)? Give summary @ -no Was smoking cessation discussed for >3mins.? @ -no Was critical care preformed (if so, how long)? @ -no Were there social determinants of health that impacted care today? How? (Homelessness, low income, unemployed, alcoholism, drug addiction, transportation, low edu. Level, literacy, decrease access to med. care, fpc, rehab)? @ -none Was there de-escalation of care discussed even if they declined (Discuss DNR or withdrawal of care, Hospice)? DNR status @ -no What co-morbidities impacted this encounter? (DM, HTN, Smoking, COPD, CAD, Cancer, CVA, ARF, Chemo, Hep., AIDS, mental health diagnosis, sleep apnea, morbid obesity)? @ -none Was patient admitted / discharged? Hospital course, mention meds given and route, prescriptions, significant lab abnormalities, going to OR and other pertinent info. @ - Undiagnosed new problem with uncertain prognosis? @ -no Drug Therapy requiring intensive monitoring for toxicity (Heparin, Nitro, Insulin, Cardizem)? @ -no Were any procedures done? @ -no Diagnosis/symptom? @ - Acute, or Chronic, or Acute on Chronic? @ -Acute Uncomplicated (without systemic symptoms) or Complicated (systemic symptoms)? @ -Complicated Side effects of treatment? @ -no Exacerbation, Progression, or Severe Exacerbation? @ -exacerbation Poses a threat to life or bodily function? How? (Chest pain, USA, AL, pneumonia, PE, COPD, DKA, ARF, appy, cholecystitis, CVA, Diverticulitis, Homicidal, Suicidal, threat to staff... and all critical care pts) @ -yes EKG Findings - EKG Comments: EKG Findings:: EKG is sinus 65 AR 122 QRS 102 QTc 424 - EKG Results: EKG: interpreted by ÁNGEL Medical Decision Making - Lab Data Result diagrams: 02/25/24 19:05 02/25/24 19:05 Lab Results 02/25/24 02/25/24 02/25/24 Range/Units 19:05 19:05 19:05 WBC 9.3 (3.8-10.6) k/uL RBC 4.63 (3.80-5.40) m/uL Hgb 13.4 (11.4-16.0) gm/dL Hct 41.7 (34.0-46.0) % MCV 90.2 (80.0-100.0) fL MCH 28.9 (25.0-35.0) pg MCHC 32.0 (31.0-37.0) g/dL RDW 14.1 (11.5-15.5) % Plt Count 266 (150-450) k/uL MPV 8.4 Neutrophils % 72 % Lymphocytes % 22 % Monocytes % 3 % Eosinophils % 2 % Basophils % 1 % Neutrophils # 6.7 (1.3-7.7) k/uL Lymphocytes # 2.1 (1.0-4.8) k/uL Monocytes # 0.3 (0-1.0) k/uL Eosinophils # 0.2 (0-0.7) k/uL Basophils # 0.0 (0-0.2) k/uL PT 10.2 (10.0-12.5) sec INR 0.9 (<1.2) APTT 23.1 (22.0-30.0) sec Sodium 140 (137-145) mmol/L Potassium 4.2 (3.5-5.1) mmol/L Chloride 107 (98-107) mmol/L Carbon Dioxide 28 (22-30) mmol/L Anion Gap 5 mmol/L BUN 12 (7-17) mg/dL Creatinine 0.82 (0.52-1.04) mg/dL Est GFR (CKD-EPI)AfAm 89 (>60 ml/min/1.73 sqM) Est GFR (CKD-EPI)NonAf 77 (>60 ml/min/1.73 sqM) Glucose 134 H (74-99) mg/dL Calcium 9.5 (8.4-10.2) mg/dL Phosphorus 4.4 (2.5-4.5) mg/dL Magnesium 1.8 (1.6-2.3) mg/dL Total Bilirubin 0.4 (0.2-1.3) mg/dL AST 24 (14-36) U/L ALT 20 (4-34) U/L Alkaline Phosphatase 72 (38-126) U/L Troponin I (0.000-0.034) ng/mL NT-Pro-B Natriuret Pep 532 pg/mL Total Protein 7.3 (6.3-8.2) g/dL Albumin 4.4 (3.5-5.0) g/dL 02/25/24 Range/Units 19:05 WBC (3.8-10.6) k/uL RBC (3.80-5.40) m/uL Hgb (11.4-16.0) gm/dL Hct (34.0-46.0) % MCV (80.0-100.0) fL MCH (25.0-35.0) pg MCHC (31.0-37.0) g/dL RDW (11.5-15.5) % Plt Count (150-450) k/uL MPV Neutrophils % % Lymphocytes % % Monocytes % % Eosinophils % % Basophils % % Neutrophils # (1.3-7.7) k/uL Lymphocytes # (1.0-4.8) k/uL Monocytes # (0-1.0) k/uL Eosinophils # (0-0.7) k/uL Basophils # (0-0.2) k/uL PT (10.0-12.5) sec INR (<1.2) APTT (22.0-30.0) sec Sodium (137-145) mmol/L Potassium (3.5-5.1) mmol/L Chloride (98-107) mmol/L Carbon Dioxide (22-30) mmol/L Anion Gap mmol/L BUN (7-17) mg/dL Creatinine (0.52-1.04) mg/dL Est GFR (CKD-EPI)AfAm (>60 ml/min/1.73 sqM) Est GFR (CKD-EPI)NonAf (>60 ml/min/1.73 sqM) Glucose (74-99) mg/dL Calcium (8.4-10.2) mg/dL Phosphorus (2.5-4.5) mg/dL Magnesium (1.6-2.3) mg/dL Total Bilirubin (0.2-1.3) mg/dL AST (14-36) U/L ALT (4-34) U/L Alkaline Phosphatase (38-126) U/L Troponin I <0.012 (0.000-0.034) ng/mL NT-Pro-B Natriuret Pep pg/mL Total Protein (6.3-8.2) g/dL Albumin (3.5-5.0) g/dL Disposition Clinical Impression: Benign paroxysmal positional vertigo Condition: Fair Instructions (If sedation given, give patient instructions): Dizziness (ED) Is patient prescribed a controlled substance at d/c from ED?: No Referrals: Alma Jasso MD [Primary Care Provider] - 1-2 days Time of Disposition: 22:00
[2024-02-25] MEDS: SODIUM CHLORIDE 0.9% 1,000 ML IV STA (19:09)
[2024-02-25 19:21] LABS: Basophils % (A) 1 %; Eosinophils # (A) 0.2 k/uL (0-0.7); Eosinophils % (A) 2 %; HCT 41.7 % (34.0-46.0); HGB 13.4 gm/dL (11.4-16.0); Lymphocytes # (A) 2.1 k/uL (1.0-4.8); Lymphocytes % (A) 22 %; MCH 28.9 pg (25.0-35.0); MCV 90.2 fL (80.0-100.0); Mean Platelet Volume 8.4; Monocytes # (A) 0.3 k/uL (0-1.0); Monocytes % (A) 3 %; Neutrophils # (A) 6.7 k/uL (1.3-7.7); Neutrophils % (A) 72 %; Platelet Count 266 k/uL (150-450); RBC 4.63 m/uL (3.80-5.40); RDW 14.1 % (11.5-15.5); WBC 9.3 k/uL (3.8-10.6)
[2024-02-25 19:36] LABS: ALT 20 U/L (4-34); AST 24 U/L (14-36); African American GFR (CKD) 89 (>60 ml/min/1.73 sqM); Albumin 4.4 g/dL (3.5-5.0); Alkaline Phosphatase 72 U/L (38-126); Anion Gap 5 mmol/L; Blood Urea Nitrogen 12 mg/dL (7-17); Calcium 9.5 mg/dL (8.4-10.2); Carbon Dioxide 28 mmol/L (22-30); Chloride 107 mmol/L (98-107); Glucose 134 mg/dL (74-99); INR 0.9 (<1.2); Magnesium 1.8 mg/dL (1.6-2.3); Non-African American GFR(CKD) 77 (>60 ml/min/1.73 sqM); Partial Thromboplastin Time 23.1 sec (22.0-30.0); Phosphorus 4.4 mg/dL (2.5-4.5); Potassium 4.2 mmol/L (3.5-5.1); Prothrombin Time 10.2 sec (10.0-12.5); Sodium 140 mmol/L (137-145); Total Bilirubin 0.4 mg/dL (0.2-1.3); Total Protein 7.3 g/dL (6.3-8.2)
[2024-02-25 19:44] LABS: NT-Pro-B-Type Natriuretic Pept 532 pg/mL
[2024-02-25 20:47] VITALS: RESP 18
[2024-02-25] MEDS: ONDANSETRON 4 MG/2 ML VIAL IVP STA (20:47)
[2024-02-25] MEDS: SODIUM CHLORIDE 0.9% 500 ML 500 ML IV STA (20:49)
[2024-02-25] MEDS: diphenhydrAMINE 50 MG/ML 1 ML VIAL IVP STA (20:54)
[2024-02-25] MEDS: MECLIZINE 12.5 MG TAB PO STA (20:58)
--- NOTE | 2024-02-25 21:04 | CT ---
EXAMINATION TYPE: CT brain wo con DATE OF EXAM: 02/25/2024 8:51 PM COMPARISON: Previous CT 05/16/2023.. CLINICAL INDICATION: Female, 63 years old with history of pain, dizziness, headache, nausea, and fati christian TECHNIQUE: Brain: Axial CT images of the brain were obtained with coronal and sagittal reformats created and rev iewed. Contrast used: None. Oral contrast used: None. CT DLP: 1607.7 mGycm, Automated exposure control for dose reduction was used. FINDINGS: Brain: Extra-axial spaces: No abnormal extra-axial fluid collections. Ventricular system: Within normal limits Cerebral parenchyma: No acute intraparenchymal hemorrhage or mass effect. The blankenship-white junction is well differentiated. Cerebellum: Unremarkable. Mass effect: No evidence of midline shift. Intracranial vasculature: unremarkable Soft tissues: Normal. Calvarium/osseous structures: No depressed skull fracture. Paranasal sinuses and mastoid air cells: Mild scattered paranasal sinus disease. Visualized orbits: Orbital contents are intact. IMPRESSION: No acute intracranial process. [facility], , 02/25/2024 9:02 PM
--- NOTE | 2024-02-25 21:37 | CT ---
EXAMINATION TYPE: CT angio head neck DATE OF EXAM: 02/25/2024 8:55 PM COMPARISON: None. CLINICAL INDICATION: Female, 63 years old with history of vertigo; PHH, dizziness, headache, nausea, and fatigue TECHNIQUE: Axially acquired helical CT angiogram of the head and neck was obtained with contrast. Axi al images are supplemented with 3D reconstructions and MIP images which were post-processed at an in dependent workstation. NASCET criteria used. Contrast used:65 mL of Isovue 370 without and with IV Contrast, Oral contrast used: None. CT DLP: combined 1607.7 mGycm, Automated exposure control for dose reduction was used. FINDINGS: CTA HEAD: No evidence of acute intracranial hemorrhage, mass effect, or midline shift. The ventricles, sulci, a nd cisterns are unremarkable. Vertebral arteries: The vertebral arteries are patent. Vertebral artery dominance: Left Basilar artery: The basilar artery is intact. The basilar artery bifurcation is normal. Internal Carotid arteries: Calcified atherosclerotic plaque of the right intracranial internal caroti d artery, approximately 50% narrowing (series 506 image 23) normal appearance of the intracarotid lef t internal carotid artery. No evidence of flow limiting stenosis. AUSTYN: Patent with no evidence of aneurysm. ACOM: Present without evidence of aneurysm. MCA: Patent with no evidence of aneurysm. ART GILDER: Patent with no evidence of aneurysm. PCOM: Present bilaterally. Dural sinuses: Patent. CTA NECK: Right Carotid System: The common carotid and external carotid arteries are patent. There is less than 50% stenosis at the c arotid bifurcation secondary to calcified/noncalcified plaque. Marked focal tortuosity (series 501 im age 78). The rest of the internal carotid artery is patent. Left Carotid System: The common carotid and external carotid arteries are patent. There is less than 50% stenosis at the c arotid bifurcation secondary to calcified/noncalcified plaque. The rest of the internal carotid arter y is patent. Vertebral arteries are patent without evidence hemodynamically significant stenosis. There is a three-vessel aortic arch. Ooep-tl-higpspsl narrowing of the left subclavian artery origin due to calcified plaque. No evidence of hemodynamically significant stenosis. Upper thorax: IMPRESSION: 1. No evidence of dissection of the cervical internal carotid arteries or vertebral arteries. 2. No evidence of significant/flow limiting stenosis at the carotid bifurcations. 3. No evidence of intracranial high-grade stenosis or intracranial aneurysm. [facility], , 02/25/2024 9:34 PM
[2024-02-25 22:03] VITALS: BP 114/76; PULSE 64
[2024-02-25] MEDS: ONDANSETRON 4 MG ODT STARTER PACK 2 TAB BTL PO STA (22:06)
== END 2024-02-25 22:10 | disposition home or self-care (01) ==
LOC: EC 18:38
DX: H81.10 Benign paroxysmal vertigo, unspecified ear (principal); Z88.5 Allergy status to narcotic agent; Z88.8 Allergy status to other drugs, medicaments and biological substances; Z87.891 Personal history of nicotine dependence
CPT/HCPCS: 36415; 93005; 83880; 80053; 83735; 84100; 84484; 85025; 85610; 85730; 70496; 70450; 70498; 99284; 96374; 96361; J2405; S0119; Q9967

== ENCOUNTER → 2024-05-29 | Outpatient (CLI) | payer MEDICARE ==
--- NOTE | 2024-05-29 18:02 | MR ---
INDICATION: Patient age:Female; 64 years old; Reason for study: R42.0 VERTIGO; PHH. COMPARISON: CT brain 02/25/2024, 05/16/2023, CTA head and neck 02/25/2024. TECHNIQUE: Multi planar, multi sequence imaging was performed through the brain without the administr ation of intravenous contrast. FINDINGS: The blankenship-white junctions, ventricular system, basal cisterns appear unremarkable. Age-appropriate cer ebral cortical volume. Diffusion-weighted imaging shows no evidence of restricted diffusion to sugges t acute/subacute infarct. Intracranial arterial flow voids are maintained. Midline structures show no abnormality. Patchy areas of high T2/FLAIR signal intensity are seen within the supratentorial periv entricular and subcortical white matter. The susceptibility weighted images do not reveal any evidenc e for micro-hemorrhage. The bone marrow signal is within normal limits. The globes are unremarkable. Minimal mucosal thicke anaya of the inferior bilateral maxillary sinuses. IMPRESSION: 1. No evidence of intracranial mass or acute/subacute infarct. 2. Nonspecific mild white matter changes, likely related to small vessel ischemic disease. Demyelinat ing disease, chronic migraines, vasculitis, Lyme disease are other considerations. [facility], , 05/29/2024 5:59 PM
== END | disposition home or self-care (01) ==
LOC: RADMRIMAIN 16:02
PROVIDERS: ATTEND Family Medicine
DX: R90.82 White matter disease, unspecified (principal); G43.909 Migraine, unspecified, not intractable, without status migrainosus; G37.9 Demyelinating disease of central nervous system, unspecified
CPT/HCPCS: 70551

== ENCOUNTER 2024-09-15 15:30 | Inpatient (IN) | payer MEDICARE ==
--- NOTE | 2024-09-15 16:34 | ED ---
Altered Mental Status HPI - General Chief Complaint: Altered Mental Status Stated Complaint: Lethargy,Nausea,Vomiting Time Seen by Provider: 09/15/24 16:30 Source: patient, EMS, RN notes reviewed Mode of arrival: EMS Limitations: no limitations - History of Present Illness Initial Comments: 64-year-old female with history of vertigo, COPD, and CHF presenting for altered mental status x 3 hours. Family reports around 1 PM patient went into the bathroom for approximately 1 hour. Family reports they could hear patient mumbling to herself from the bathroom and at that point called patient's to come check on her. states he found patient sitting on the toilet. He was able to get her up and patient began to vomit. Family reports she has had similar symptoms before with vertigo flareups but this seems worse. reports patient is very lethargic and not acting like herself. He does not believe she fell or hit her head. She is able to answer all questions and is alert and oriented x 3 but is very slow to respond. She does admit to a headache. Denies chest pain, shortness of breath, abdominal pain, vision changes, numbness, weakness, or tingling in the extremities. Family states patient went to a 3-day music festival this weekend. Denies taking any drugs or new medicine. Denies blood thinners. - Related Data Home Medications Medication Instructions Recorded Confirmed Albuterol Inhaler [Ventolin Hfa 1 - 2 puff INHALATION Q6H PRN 10/02/23 10/08/23 Inhaler] Budesonide/Formoterol Fumarate 2 puff INHALATION BID 10/02/23 10/08/23 [Breyna 160-4.5 Mcg Inhaler] Ipratropium-Albuterol Nebulize 3 ml INHALATION TID PRN 10/02/23 10/08/23 [Duoneb 0.5 mg-3 mg/3 ml Soln] Previous Rx's Medication Instructions Recorded Aspirin [Adult Low Dose Aspirin EC] 81 mg PO DAILY 30 Days #30 tab 05/19/23 Atorvastatin [Lipitor] 80 mg PO HS 30 Days #30 tab 05/19/23 Meclizine [Antivert] 25 mg PO TID #15 tab 02/25/24 Allergies Allergy/AdvReac Type Severity Reaction Status Date / Time codeine Allergy Nausea & Verified 02/25/24 18:48 Vomiting cyclobenzaprine Allergy itching, Verified 02/25/24 18:48 [From Flexeril] feels like things are crawling on her morphine Allergy Nausea & Verified 02/25/24 18:48 Vomiting Review of Systems ROS Statement: Those systems with pertinent positive or pertinent negative responses have been documented in the HPI. ROS Other: All systems not noted in ROS Statement are negative. Past Medical History Past Medical History: COPD History of Any Multi-Drug Resistant Organisms: None Reported Past Surgical History: Section, Orthopedic Surgery Past Psychological History: No Psychological Hx Reported Smoking Status: Former smoker Past Alcohol Use History: Occasional Past Drug Use History: None Reported General Exam Limitations: no limitations, altered mental status (Alert and oriented x 3 however patient is slow to respond to questioning) General appearance: in no apparent distress, lethargic Head exam: Present: atraumatic, normocephalic, normal inspection Eye exam: Present: normal appearance, PERRL, EOMI. Absent: scleral icterus, conjunctival injection, periorbital swelling ENT exam: Present: normal exam, mucous membranes moist Respiratory exam: Present: normal lung sounds bilaterally. Absent: respiratory distress, wheezes, rales, rhonchi, stridor Cardiovascular Exam: Present: regular rate, normal rhythm, normal heart sounds. Absent: systolic murmur, diastolic murmur, rubs, gallop, clicks GI/Abdominal exam: Present: soft, normal bowel sounds. Absent: distended, tenderness, guarding, rebound, rigid Extremities exam: Present: normal inspection, full ROM, normal capillary refill. Absent: tenderness, pedal edema, joint swelling, calf tenderness Back exam: Present: normal inspection Neurological exam: Present: alert, oriented X3, CN II-XII intact Skin exam: Present: warm, dry, intact, normal color. Absent: rash Course Vital Signs 09/15/24 09/15/24 15:41 15:50 Temperature 97.8 F Pulse Rate 81 Respiratory 21 22 Rate Blood Pressure 155/81 O2 Sat by Pulse 89 L 94 L Oximetry Medical Decision Making - Medical Decision Making Was pt. sent in by a medical professional or institution (, PA, PARTS FABRICATOR, urgent care, hospital, or assisted...) When possible be specific @ -No Did you speak to anyone other than the patient for history (EMS, parent, family, police, friend...)? What history was obtained from this source @ - and daughter provided most of history Did you review nursing and triage notes (agree or disagree)? Why? @ -I reviewed and agree with nursing and triage notes Were old charts reviewed (outside hosp., previous admission, EMS record, old EKG, old radiological studies, urgent care reports/EKG's, assisted records)? Report findings @ -No old charts were reviewed Differential Diagnosis (chest pain, altered mental status, abdominal pain women, abdominal pain men, vaginal bleeding, weakness, fever, dyspnea, syncope, headache, dizziness, GI bleed, back pain, seizure, CVA, palpatations, mental health, musculoskeletal)? @ -Differential Altered Mental Status: Hypoglycemia, DKA, hypercapnia, ETOH, overdose, CO poisoning, trauma, myxedema coma, HTN encephalopathy, infection, encephalitis, psychosis, intercranial hemorrhage, hepatic encephalopathy, meningitis, CVA, this is not meant to be an all-inclusive list EKG interpreted by me (3pts min.). @ -As above X-rays interpreted by me (1pt min.). @ -Chest x-ray interpreted by me reveals pulmonary vascular congestion correlate for congestive heart failure CT interpreted by me (1pt min.). @ -CT brain reveals suspected inferior medial left cerebellar infarct, CT angio head and neck negative U/S interpreted by me (1pt. min.). @ -None done What testing was considered but not performed or refused? (CT, X-rays, U/S, labs )? Why? @ -None What meds were considered but not given or refused? Why? @ -None Did you discuss the management of the patient with other professionals (professionals i.e. , PA, PARTS FABRICATOR, lab, RT, psych nurse, professor of social work, technical applications specialist, teacher, ammunition officer, case management specialist)? Give summary @ -I spoke with Dr. Hidalgo on-call neurologist who recommends starting aspirin and Lipitor and admitting to medicine with neurology consult. I then spoke with Alba from [facility] who accepts admission Was smoking cessation discussed for >3mins.? @ -No Was critical care preformed (if so, how long)? @ -No Were there social determinants of health that impacted care today? How? (Homelessness, low income, unemployed, alcoholism, drug addiction, transportation, low edu. Level, literacy, decrease access to med. care, [facility], rehab)? @ -No Was there de-escalation of care discussed even if they declined (Discuss DNR or withdrawal of care, Hospice)? DNR status @ -No What co-morbidities impacted this encounter? (DM, HTN, Smoking, COPD, CAD, Cancer, CVA, ARF, Chemo, Hep., AIDS, mental health diagnosis, sleep apnea, morbid obesity)? @ -None Was patient admitted / discharged? Hospital course, mention meds given and route, prescriptions, significant lab abnormalities, going to OR and other pertinent info. @ -Admitted. 64-year-old female presenting for altered mental status x 3 hours with nausea and vomiting. Patient is oriented x 3 and is able to answer all questions appropriate. No focal deficits. Neurological examination is unremarkable. NIH is 3. White blood cell count 16, lactic 6.1. CT brain revealed suspected inferior medial left cerebellar infarct. Discussed results with patient and family. All questions answered at bedside. I spoke with Dr. Hidalgo on-call neurologist who recommends starting aspirin and Lipitor and admitting to medicine with neurology consult. I then spoke with Alba from [facility] who accepts admission. Case was discussed with my ED attending Dr. Argueta. Undiagnosed new problem with uncertain prognosis? @ -No Drug Therapy requiring intensive monitoring for toxicity (Heparin, Nitro, Insulin, Cardizem)? @ -No Were any procedures done? @ -No Diagnosis/symptom? @ -Cerebellar infarct Acute, or Chronic, or Acute on Chronic? @ -Acute Uncomplicated (without systemic symptoms) or Complicated (systemic symptoms)? @ -Complicated Side effects of treatment? @ -No Exacerbation, Progression, or Severe Exacerbation? @ -No Poses a threat to life or bodily function? How? (Chest pain, USA, MS, pneumonia, PE, COPD, DKA, ARF, appy, cholecystitis, CVA, Diverticulitis, Homicidal, Suicidal, threat to staff... and all critical care pts) @ -Yes - Lab Data Result diagrams: 09/15/24 16:34 09/15/24 16:34 Lab Results 09/15/24 09/15/24 09/15/24 Range/Units 16:34 16:34 16:34 WBC 15.98 H (4.50-10.00) 10*3/uL RBC 4.86 (4.10-5.20) 10*6/uL Hgb 14.6 (12.0-15.0) g/dL Hct 44.0 (37.2-46.3) % MCV 90.5 (80.0-97.0) fL MCH 30.0 (27.0-32.0) pg MCHC 33.2 (32.0-37.0) g/dL Plt Count 295 (140-440) 10*3/uL MPV 10.7 (9.5-12.2) fL Immature Gran % (Auto) 0.5 % Neutrophils % 87.1 % Lymphocytes % 6.6 % Monocytes % 5.4 % Eosinophils % 0.1 % Basophils % 0.3 % Immature Gran # 0.08 H (0.00-0.04) 10*3/uL Neutrophils # 13.92 H (1.80-7.70) 10*3/uL Lymphocytes # 1.05 (0.90-5.00) 10*3/uL Monocytes # 0.87 (0.20-1.00) 10*3/uL Eosinophils # 0.01 L (0.04-0.35) 10*3/uL Basophils # 0.05 (0.00-0.10) 10*3/uL PT 11.4 (10.0-12.5) sec INR 1.0 (<1.2) APTT 20.6 L (22.0-30.0) sec Sodium 141 (137-145) mmol/L Potassium 4.2 (3.5-5.1) mmol/L Chloride 103 (98-107) mmol/L Carbon Dioxide 20 L (22-30) mmol/L Anion Gap 18 mmol/L BUN 12 (7-17) mg/dL Creatinine 0.69 (0.52-1.04) mg/dL Est GFR (CKD-EPI)AfAm >90 (>60 ml/min/1.73 sqM) Est GFR (CKD-EPI)NonAf >90 (>60 ml/min/1.73 sqM) Glucose 157 H (74-99) mg/dL Plasma Lactic Acid Fredy (0.7-2.0) mmol/L Calcium 9.3 (8.4-10.2) mg/dL Magnesium 1.3 L (1.6-2.3) mg/dL Total Bilirubin 0.3 (0.2-1.3) mg/dL AST 32 (14-36) U/L ALT 36 H (4-34) U/L Alkaline Phosphatase 93 (38-126) U/L Troponin I (0.000-0.034) ng/mL NT-Pro-B Natriuret Pep 286 pg/mL Total Protein 7.7 (6.3-8.2) g/dL Albumin 4.8 (3.5-5.0) g/dL Influenza Type A (PCR) (Not Detectd) Influenza Type B (PCR) (Not Detectd) RSV (PCR) (Not Detectd) SARS-CoV-2 (PCR) (Not Detectd) 09/15/24 09/15/24 09/15/24 Range/Units 16:34 16:34 16:36 WBC (4.50-10.00) 10*3/uL RBC (4.10-5.20) 10*6/uL Hgb (12.0-15.0) g/dL Hct (37.2-46.3) % MCV (80.0-97.0) fL MCH (27.0-32.0) pg MCHC (32.0-37.0) g/dL Plt Count (140-440) 10*3/uL MPV (9.5-12.2) fL Immature Gran % (Auto) % Neutrophils % % Lymphocytes % % Monocytes % % Eosinophils % % Basophils % % Immature Gran # (0.00-0.04) 10*3/uL Neutrophils # (1.80-7.70) 10*3/uL Lymphocytes # (0.90-5.00) 10*3/uL Monocytes # (0.20-1.00) 10*3/uL Eosinophils # (0.04-0.35) 10*3/uL Basophils # (0.00-0.10) 10*3/uL PT (10.0-12.5) sec INR (<1.2) APTT (22.0-30.0) sec Sodium (137-145) mmol/L Potassium (3.5-5.1) mmol/L Chloride (98-107) mmol/L Carbon Dioxide (22-30) mmol/L Anion Gap mmol/L BUN (7-17) mg/dL Creatinine (0.52-1.04) mg/dL Est GFR (CKD-EPI)AfAm (>60 ml/min/1.73 sqM) Est GFR (CKD-EPI)NonAf (>60 ml/min/1.73 sqM) Glucose (74-99) mg/dL Plasma Lactic Acid Fredy 6.1 H* (0.7-2.0) mmol/L Calcium (8.4-10.2) mg/dL Magnesium (1.6-2.3) mg/dL Total Bilirubin (0.2-1.3) mg/dL AST (14-36) U/L ALT (4-34) U/L Alkaline Phosphatase (38-126) U/L Troponin I <0.012 (0.000-0.034) ng/mL NT-Pro-B Natriuret Pep pg/mL Total Protein (6.3-8.2) g/dL Albumin (3.5-5.0) g/dL Influenza Type A (PCR) Not Detected (Not Detectd) Influenza Type B (PCR) Not Detected (Not Detectd) RSV (PCR) Not Detected (Not Detectd) SARS-CoV-2 (PCR) Not Detected (Not Detectd) - EKG Data -: EKG Interpreted by Me EKG Comments: EKG reveals normal sinus rhythm with no acute ST changes. Ventricular rate 78 bpm, CA interval 139, QRS duration 82, QT/QTc 365/398 Disposition Clinical Impression: Cerebellar infarct Disposition: ADMITTED IP TO THIS HOSP Referrals: Alma Jasso MD [Primary Care Provider] - 1-2 days Time of Disposition: 18:59
[2024-09-15 16:44] LABS: Basophils # (A) 0.05 10*3/uL (0.00-0.10); Basophils % (A) 0.3 %; Eosinophils # (A) 0.01 10*3/uL (0.04-0.35); Eosinophils % (A) 0.1 %; HGB 14.6 g/dL (12.0-15.0); Lymphocytes # (A) 1.05 10*3/uL (0.90-5.00); Lymphocytes % (A) 6.6 %; MCHC 33.2 g/dL (32.0-37.0); MCV 90.5 fL (80.0-97.0); Mean Platelet Volume 10.7 fL (9.5-12.2); Monocytes # (A) 0.87 10*3/uL (0.20-1.00); Monocytes % (A) 5.4 %; Neutrophils # (A) 13.92 10*3/uL (1.80-7.70); Neutrophils % (A) 87.1 %; Platelet Count 295 10*3/uL (140-440); RBC 4.86 10*6/uL (4.10-5.20); WBC 15.98 10*3/uL (4.50-10.00)
[2024-09-15] MEDS: SODIUM CHLORIDE 0.9% 1,000 ML IV STA (16:45)
[2024-09-15] MEDS: MECLIZINE 12.5 MG TAB PO STA (16:46)
[2024-09-15 17:04] LABS: Partial Thromboplastin Time 20.6 sec (22.0-30.0); Prothrombin Time 11.4 sec (10.0-12.5)
[2024-09-15 17:15] LABS: AST 32 U/L (14-36); African American GFR (CKD) >90 (>60 ml/min/1.73 sqM); Albumin 4.8 g/dL (3.5-5.0); Alkaline Phosphatase 93 U/L (38-126); Anion Gap 18 mmol/L; Blood Urea Nitrogen 12 mg/dL (7-17); Calcium 9.3 mg/dL (8.4-10.2); Carbon Dioxide 20 mmol/L (22-30); Chloride 103 mmol/L (98-107); Glucose 157 mg/dL (74-99); Magnesium 1.3 mg/dL (1.6-2.3); Non-African American GFR(CKD) >90 (>60 ml/min/1.73 sqM); Potassium 4.2 mmol/L (3.5-5.1); Sodium 141 mmol/L (137-145); Total Bilirubin 0.3 mg/dL (0.2-1.3); Total Protein 7.7 g/dL (6.3-8.2)
[2024-09-15 17:20] LABS: NT-Pro-B-Type Natriuretic Pept 286 pg/mL
[2024-09-15 17:21] LABS: ALT 36 U/L (4-34)
[2024-09-15 17:26] LABS: Influenza A Not Detected (Not Detectd); Influenza B Not Detected (Not Detectd); RSV Not Detected (Not Detectd)
--- NOTE | 2024-09-15 18:33 | CT ---
EXAMINATION TYPE: CT brain wo con DATE OF EXAM: 09/15/2024 6:11 PM COMPARISON: None. CLINICAL INDICATION: Female, 64 years old with history of altered mental status, altered mental statu s TECHNIQUE: CT of the brain is performed utilizing 3 mm thick sections through the posterior fossa and 3 mm thick sections through the remaining calvarium. Study is performed within 24 hours of arrival to the hospital. Contrast used: mL of , (none if empty) CT DLP: 1087 mGycm, Automated exposure control for dose reduction was used. FINDINGS: No abnormal hyperdensity is present to suggest an acute intracranial hemorrhage. No mass lesion is evident. There is subtle hypodensity within the left inferior medial cerebellum. Clinical correlation for infa rct is recommended. Report was called to the emergency room PA by Dr. Nina by telephone at the quin e of interpretation. Ventricles and sulci are appropriate for the patient age. Paranasal sinuses and mastoid air cells within the [id number] are clear. IMPRESSION: 1. Suspected inferior medial left cerebellar infarct. Follow-up MRI recommended. [facility], , 09/15/2024 6:30 PM
--- NOTE | 2024-09-15 18:39 | CT ---
EXAMINATION TYPE: CT angio head neck DATE OF EXAM: 09/15/2024 6:24 PM COMPARISON: None. CLINICAL INDICATION: Female, 64 years old with history of altered mental status, altered mental statu s TECHNIQUE: CTA scan is performed with axial images are obtained, coronal and sagittal reformatted noa ges are reviewed. MIP images created on a separate workstation and submitted for review. 3-D reconstr ucted images are created on an independent workstation and reviewed. Source images are reviewed. VERITO CET criteria was used in interpretation of this exam? Contrast used:65 mL of Isovue 370 with IV Contrast, (none if empty) Oral contrast used: (none if empty) CT DLP: 547.2 mGycm, Automated exposure control for dose reduction was used. FINDINGS: Carotid/Vascular Structures: There is a 3 vessel arch. Common carotid arteries bifurcate into internal and external carotid arteries without significant vimal w limiting stenosis. Vertebral arteries are codominant. Internal carotid arteries and vertebral arteries are patent to the skull base. Cervical of [place]endar[place]: Vertebral basilar system appears normal. Posterior inferior cerebellar arteries a re not well visualized. Posterior cerebral vasculature is unremarkable. Internal carotid arteries bif urcate normally into A1 and M1 segments. A2 segments are normal. The anterior communicating artery is patent. The right posterior communicating artery is patent. The left posterior communicating artery is patent. IMPRESSION: 1. No flow-limiting stenosis bilateral carotid bifurcations. 2. Normal [place] of [place]. The posterior inferior cerebellar arteries are not well visualized but no t asymmetrically. [facility], , 09/15/2024 6:36 PM
--- NOTE | 2024-09-15 19:03 | XR ---
EXAMINATION TYPE: XR chest 2V DATE OF EXAM: 09/15/2024 6:06 PM COMPARISON: 05/16/2023 CLINICAL INDICATION: Female, 64 years old with history of altered mental status, TECHNIQUE: XR chest 2V view(s) obtained. FINDINGS: The heart size is enlarged. The pulmonary vasculature is prominent. Diffuse increased lung markings are present bilaterally.. IMPRESSION: 1. Clinical correlation for congestive heart failure. [facility], , 09/15/2024 7:00 PM
[2024-09-15] MEDS ORDERED: ACETAMINOPHEN TAB 325 MG TAB PO PRN (19:05)
[2024-09-15] MEDS ORDERED: NALOXONE 0.4 MG/ML 1 ML VIAL IV PRN (19:05)
[2024-09-15 19:10] LABS: Amphetamine Screen,Urine Not Detected (NotDetected); Appearance,Urine Cloudy (Clear); Bacteria,Urine Rare /hpf; Barbiturate Screen,Urine Not Detected (NotDetected); Benzodiazepines Screen,Urine Not Detected (NotDetected); Bilirubin,Urine Negative (Negative); Blood,Urine Small (Negative); Cocaine Screen,Urine Not Detected (NotDetected); Color,Urine Light Yellow; Glucose,Urine (UA) Negative (Negative); Ketones,Urine Negative (Negative); Leukocyte Esterase,Urine Small (Negative); Methadone Screen, Urine Not Detected (NotDetected); Mucus,Urine Rare /hpf; Nitrite,Urine Negative (Negative); Opiate Screen,Urine Not Detected (NotDetected); Oxycodone Screen, Urine Not Detected (NotDetected); PH, Urine 5.5 (5.0-8.0); Phencyclidine Screen,Urine Not Detected (NotDetected); Protein,Urine Trace (Negative); RBC,Urine 3 /hpf (0-5); Squamous Epithelial Cell,Urine 5 /hpf (0-4); Tricyclic Antidepressant,Urine Not Detected (NotDetected); Urn Cannabinoid Scrn Not Detected (NotDetected); Urobilinogen,Urine <2.0 mg/dL (<2.0); WBC,Urine 1 /hpf (0-5)
[2024-09-15 19:11] LABS: Specific Gravity,Urine 1.046 (1.001-1.035)
[2024-09-15] MEDS: ASPIRIN 81 MG PO STA (20:40)
[2024-09-15] MEDS: ATORVASTATIN 80 MG TAB PO STA (20:40)
[2024-09-16] MEDS: ONDANSETRON 4 MG/2 ML VIAL IVP PRN ×2 (00:46→20:04)
[2024-09-16] MEDS ORDERED: MECLIZINE 25 MG TAB PO PRN (09:29)
[2024-09-16 12:16] LABS: Basophils # (A) 0.02 10*3/uL (0.00-0.10); Basophils % (A) 0.2 %; HCT 40.3 % (37.2-46.3); HGB 13.2 g/dL (12.0-15.0); Lymphocytes # (A) 1.47 10*3/uL (0.90-5.00); Lymphocytes % (A) 11.2 %; MCH 30.2 pg (27.0-32.0); MCHC 32.8 g/dL (32.0-37.0); MCV 92.2 fL (80.0-97.0); Mean Platelet Volume 10.2 fL (9.5-12.2); Monocytes # (A) 1.04 10*3/uL (0.20-1.00); Monocytes % (A) 7.9 %; Neutrophils # (A) 10.53 10*3/uL (1.80-7.70); Neutrophils % (A) 80.4 %; Platelet Count 253 10*3/uL (140-440); RBC 4.37 10*6/uL (4.10-5.20); RDW 14.5 % (11.5-14.5)
[2024-09-16] MEDS: SODIUM CHLORIDE 0.9% 1,000 ML IV SCH (12:25)
[2024-09-16] MEDS: MAGNESIUM SULFATE-D5W PMX 1 GM in DEXTROSE/WATER 1 100ML.BAG IVPB SCH (12:27)
--- NOTE | 2024-09-16 15:16 | P.CNNES ---
History of Present Illness Consult date: 09/16/24 Requesting physician: Cristina Yost Reason for Consult: cerebellar infarct History of Present Illness: 64-year-old woman who presents emergency department because of confusion. Patient is at bedside who provide the history. According to the yesterday the patient was sleepy that was noted by her son and then at 2 PM the son notified his father that the patient was in the bathroom for 2 hours. The came home and found the patient sitting on the toilet lethargic confused she was vomiting. She was able to correctly follow some commands to her . It seems that the patient went to a concert with her in [place] Saturday and Saturday. She was doing well the day after until yesterday. No fevers. No travels other than that. No rash. Patient does not have any history of stroke or seizure. She does have significant history of myocardial infarction in which she had 3-4 last one was about 20 years ago. She smokes 1 pack a day, has mild congestive heart failure, she does drink alcohol, has COPD. According to the the patient does not have any history of stroke. She does not have any history of cancer. Some of the workup during this hospital visit consisted of: Temperature on presentation was normal White blood cell is 15,000 which is neutrophilic but is trending down Magnesium is 1.3, initial plasma lactic acid 6.1 that normalized I reviewed the rest of the lab workup CT of the head reported as suspected inferior medial left cerebellar infarct. Follow-up MRI recommended. Patient already reviewed the CT and I agree there is a hypodensity over the medial inferior left cerebellar region. CT angiography of the head and neck is reported as no flow-limiting stenosis bilateral carotid bifurcation. Normal [place] of Armendariz. The posterior inferior cerebellar artery are not well-visualized but not asymmetrical. Review of Systems Limited but as per HPI. Past Medical History Past Medical History: COPD, Myocardial Infarction ([place]) Last Myocardial Infarction Date:: 2004 History of Any Multi-Drug Resistant Organisms: None Reported Past Surgical History: Section, Orthopedic Surgery Past Psychological History: No Psychological Hx Reported Smoking Status: Current every day smoker Past Alcohol Use History: Occasional Past Drug Use History: None Reported Medications and Allergies Home Medications Medication Instructions Recorded Confirmed Type Acetaminophen Tab [Tylenol Tab] 500 - 1,000 mg PO Q6H PRN 09/15/24 09/15/24 History Meclizine HCl [Antivert] 25 mg PO TID PRN 09/15/24 09/15/24 History Allergies Allergy/AdvReac Type Severity Reaction Status Date / Time codeine Allergy Nausea & Verified 09/15/24 20:38 Vomiting cyclobenzaprine Allergy itching, Verified 09/15/24 20:38 [From Flexeril] feels like things are crawling on her morphine Allergy Nausea & Verified 09/15/24 20:38 Vomiting Physical Examination - Vital Signs Vital Signs: Vital Signs Temp Pulse Pulse Resp BP BP Pulse Ox 09/16/24 11:21 97.5 F L 65 16 134/80 92 L 09/16/24 08:36 98.3 F 78 18 113/67 90 L 09/16/24 04:00 98.3 F 77 19 145/80 93 L 09/15/24 23:20 97.8 F 59 L 18 149/78 94 L 09/15/24 21:56 98.0 F 79 19 158/79 94 L 09/15/24 19:26 98.0 F 74 19 149/86 95 09/15/24 15:50 22 94 L 09/15/24 15:41 97.8 F 81 21 155/81 89 L Intake and Output 09/16/24 09/16/24 09/16/24 06:59 14:59 22:59 Other: Voiding Method Diaper Diaper External Catheter External Catheter # Voids 1 # Bowel Movements 1 Weight 86.5 kg General: Lying in bed and does not appear in acute distress. HENT: Supple neck. Neuro: Limited. The patient is moderate to severe drowsy but is awake able to voice. She is oriented to self. She correctly named her 's name and her son who is at bedside names correctly. She quickly stated the current state and the [facility]. She is following simple commands. She continues to be drowsy and needed a lot of voice/slight verbal stimuli for her to be awake able which is brief. Pupils are round about 3 mm and reactive to light. No facial weakness from limi tation. No dysarthria. Motor: Strength is hard to assess individual muscle strength because of her overall cooperation. Who she will briefly lift up upper extremity above gravity as well as wiggle the toes. Sensation and reflexes are hard to assess because of her overall cooperation. Plantars are mute. Results - Laboratory Findings CBC and BMP: 09/16/24 12:03 09/15/24 16:34 Abnormal Lab Findings: Abnormal Labs 09/15/24 09/15/24 09/15/24 16:34 16:34 16:34 WBC 15.98 H Immature Gran # 0.08 H Neutrophils # 13.92 H Monocytes # Eosinophils # 0.01 L APTT 20.6 L Carbon Dioxide 20 L Glucose 157 H Plasma Lactic Acid Fredy Magnesium 1.3 L ALT 36 H Urine Appearance Ur Specific [place] Urine Protein Urine Blood Ur Leukocyte Esterase Ur Squamous Epith Cells Urine Bacteria Urine Mucus 09/15/24 09/15/24 09/15/24 16:34 18:56 19:16 WBC Immature Gran # Neutrophils # Monocytes # Eosinophils # APTT Carbon Dioxide Glucose Plasma Lactic Acid Fredy 6.1 H* 4.0 H* Magnesium ALT Urine Appearance Cloudy H Ur Specific [place] 1.046 H Urine Protein Trace H Urine Blood Small H Ur Leukocyte Esterase Small H Ur Squamous Epith Cells 5 H Urine Bacteria Rare H Urine Mucus Rare H 09/15/24 09/16/24 09/16/24 22:39 02:32 12:03 WBC 13.10 H Immature Gran # Neutrophils # 10.53 H Monocytes # 1.04 H Eosinophils # 0.00 L APTT Carbon Dioxide Glucose Plasma Lactic Acid Fredy 3.3 H* 2.9 H* Magnesium ALT Urine Appearance Ur Specific [place] Urine Protein Urine Blood Ur Leukocyte Esterase Ur Squamous Epith Cells Urine Bacteria Urine Mucus Assessment and Plan Assessment: This is a 64-year-old woman who presents emergency department because of altered mental status. CT of the head shows hypodensity over the left inferior medial cerebellar region concerning for stroke. She had elevated lactic acid which normalized. Acute encephalopathy concerning for acute to subacute ischemic stroke over the left cerebellar region. History of myocardial infarction about 3-4 and the last one was about 20 years ago History of COPD History of mild congestive heart failure Tobacco use Alcohol use Plan: MRI of the brain and cervical spine is ordered by the primary team. For the MRI of the brain I ordered with and without gadolinium The MRI machine is down and in the meantime I ordered a repeat stat CT of the head. I ordered a routine EEG 2D echo, lipid panel was ordered and pending Patient was given aspirin 81 mg once in the ED and then was started on aspirin 81 mg daily as well as Lipitor 40 mg nightly by the primary team. Prior to this the patient was low platelet on regular basis according to her . Neurochecks Cardiac monitoring SUPERVISOR NURSE are consulted and I consulted also physical and Occupational Therapy I started the patient on thiamine 100mg IV daily. Will defer rest of the medical management department other specialist For DVT prophylaxis I started the patient on subcu heparin The plan is discussed with patient's who is at bedside. Time with Patient: Greater than 30
[2024-09-16 16:25] LABS: Chol/HDL Ratio 7.59 Ratio; LDL Cholesterol,Calculated 243.9 mg/dL (0.0-131.0)
--- NOTE | 2024-09-16 16:39 | EEG ---
ELECTROENCEPHALOGRAM REPORT CLINICAL HISTORY: This is a 64-year-old woman with altered mental status. The video EEG is obtained to evaluate for seizure epileptiform activity. RELEVANT MEDICATIONS: The patient is not on any antiseizure medications. EEG TYPE: This is a routine 21-channel EEG with video using the 10/20 electrode placement system. DESCRIPTION: Wakefulness is only obtained. During awake state, the background consists of low-to- moderate voltage of 6.5 to 7.5 hertz activity. There was no physiological stage 2 sleep architecture. There is mild focal slowing over the left temporal region.. Interictal and ictal is none. ACTIVATION PROCEDURE: Photic stimulation and hyperventilation is not performed because of her lack of cooperation. CLINICAL INTERPRETATION: This is an abnormal routine EEG during awake state. The background slowing is suggestive of [id number] encephalopathy. The focal slowing over the left temporal is suggestive of cerebral dysfunction over the involved region. There is no epileptiform discharge, or seizure on the EEG. The lack of epileptiform discharge does not rule out underlying epilepsy. Clinical correlation is recommended. MMANNETTE / GILLIANN: [id number] / SANDRA
[2024-09-16] MEDS: ASPIRIN 81 MG PO SCH (16:48)
--- NOTE | 2024-09-16 16:50 | P.HPIM ---
History of Present Illness H&P Date: 09/16/24 Patient is a 64-year-old female with vertigo, COPD, CAD here for evaluation of altered mental status. Patient is a poor historian at this time and majority of history was gathered from family and ED report. At the time of admission, family reported that 3 hours from admission it was around 1 PM on 09/15, patient went to the bathroom for about an hour and heard mumbling when in the bathroom and they found patient sitting on the toilet unable to stand up and had an episode of emesis. There was also noted lethargy and confusion. They believe she did not hit her head and was responsive to questions however slow to respond. She denied chest pain, shortness of breath, abdominal pain, focal wea kness, vision changes, tremors, changes in speech. Patient has episodes of vertigo but per family, her symptoms on admission were worse than usual On admission: Vitals: Temperature 97.8 F, NJ 81, RR 21, BP 155/81, O2 saturation 89% on room air there is transition to 2 L nasal cannula and was satting 94% Labs: WBC 15.9, hemoglobin 14.6, platelet count 295,000, sodium 141, potassium 4.2, bicarb 20, BUN 12, creatinine 0.69, lactic acid 3.3, calcium 9.3, magnesium 1.3, AST 36, ALT and ALP PT were within normal limits, troponin negative at less than 0.0 12, proBNP 286, urinalysis showed trace protein, negative glucose, negative ketones, negative nitrites, small leukocyte esterase with high epi thelial cells. UDS negative. Cepheid 4 Plex negative.. Imaging: EKG independently interpreted and shows sinus rhythm with a rate of 78 bpm, normal axis, no ST-T changes, QTc [address] shows suspected inferior medial left cerebellar artery infarct. CT angiography showed no flow- limiting stenosis of the bilateral carotid bifurcations, normal redding of Armendariz with noted posterior inferior cerebral artery is not well-visualized. Chest x- ray showed cardiomegaly with some notable congestion. ED documentation reviewed. Review of systems: Pertinent positives and negatives as discussed in HPI, a complete review of systems was performed and all other systems are negative. Social history: Tobacco: Daily heavy smoker for about 57 years. Alcohol: occasional alcohol intake. Recreational drugs: no history of illicit or recreational use Travel: no known prolonged travel Physical examination: Vital signs reviewed General: non toxic, no distress, appears at stated age, room air Derm: no unusual rashes/lesions, warm Head: atraumatic, normocephalic, symmetric Eyes: EOMI, anicteric sclera, pupils equal round reactive to light ENT: Nose and ears atraumatic Neck: No cervical lymphadenopathy, trachea midline, supple Mouth: no lip lesion, mucus membranes moist Cardiovascular: S1S2 reg, no murmur Lungs: CTA bilateral, no rhonchi, no rales, no accessory muscle use Abdominal: soft, nondistended, nontender to palpation, no guarding Ext: muscle strength 5 out of 5 in all 4 extremities grossly, no gross muscle atrophy, no contractures, positive dorsalis pedis pulse bilateral, no edema Neuro: CN II-XI grossly intact, no gross focal neuro deficits, lethargic, responds to painful stimuli Psych: Alert and oriented to self, appropriate affect and mood Assessment/Plan: 64-year-old female with history of vertigo and CAD found to have acute encephalopathy on admission. Brain CT showed suspected inferior middle left cerebral artery infarct concerning for ischemic stroke The patient is admitted with an anticipated greater than 2 midnight stay for evaluation of acute encephalopathy likely secondary to ischemic stroke Active: #Acute encephalopathy, likely secondary to ischemic stroke #Lactic acidosis, resolved with IV hydration Brain CT shows suspected inferior medial left cerebellar artery infarct CT angiography showed no flow-limiting stenosis of the bilateral carotid bifurcations, with normal redding of Armendariz EKG independently interpreted and shows sinus rhythm with a rate of 78 bpm, normal axis, no ST-T changes, QTc 398 MS Continue with Neurochecks Continue with Cardiac telemetry Echocardiogram ordered Brain MRI ordered Lipid profile ordered Aspirin 81mg daily Consult neurology Consult PT/OT Consult SP # Hypomagnesemia Magnesium 1.3 on admission Replete with 4 g magnesium sulfate IVPB Recheck mag in the morning Chronic Conditions: #Vertigo #COPD #CAD Continue home meds meclizine DVT ppx: Heparin subcu CODE STATUS: Full Discussed with: Patient Anticipated discharge place: pending clinical course Indu Mendoza MD PGY-1 Internal Medicine Dictation was produced using [employer] dictation software. please excuse any g rammatical, word or spelling errors. Past Medical History Past Medical History: COPD, Myocardial Infarction ([place]) Last Myocardial Infarction Date:: 2004 History of Any Multi-Drug Resistant Organisms: None Reported Past Surgical History: Section, Orthopedic Surgery Past Psychological History: No Psychological Hx Reported Smoking Status: Current every day smoker Past Alcohol Use History: Occasional Past Drug Use History: None Reported Medications and Allergies Home Medications Medication Instructions Recorded Confirmed Type Acetaminophen Tab [Tylenol Tab] 500 - 1,000 mg PO Q6H PRN 09/15/24 09/15/24 History Meclizine HCl [Antivert] 25 mg PO TID PRN 09/15/24 09/15/24 History Allergies Allergy/AdvReac Type Severity Reaction Status Date / Time codeine Allergy Nausea & Verified 09/15/24 20:38 Vomiting cyclobenzaprine Allergy itching, Verified 09/15/24 20:38 [From Flexeril] feels like things are crawling on her morphine Allergy Nausea & Verified 09/15/24 20:38 Vomiting Physical Exam Vitals: Vital Signs Temp Pulse Pulse Resp BP BP Pulse Ox 09/16/24 04:00 98.3 F 77 19 145/80 93 L 09/15/24 23:20 97.8 F 59 L 18 149/78 94 L 09/15/24 21:56 98.0 F 79 19 158/79 94 L 09/15/24 19:26 98.0 F 74 19 149/86 95 09/15/24 15:50 22 94 L 09/15/24 15:41 97.8 F 81 21 155/81 89 L Intake and Output 09/15/24 09/16/24 09/16/24 22:59 06:59 14:59 Other: Voiding Method Diaper External Catheter # Voids 1 # Bowel Movements 1 Weight 99.79 kg 86.5 kg Results CBC & Chem 7: 09/16/24 12:03 09/15/24 16:34 Labs: Abnormal Lab Results - Last 24 Hours (Table) 09/15/24 09/15/24 09/15/24 Range/Units 16:34 16:34 16:34 WBC 15.98 H (4.50-10.00) 10*3/uL Immature Gran # 0.08 H (0.00-0.04) 10*3/uL Neutrophils # 13.92 H (1.80-7.70) 10*3/uL Eosinophils # 0.01 L (0.04-0.35) 10*3/uL APTT 20.6 L (22.0-30.0) sec Carbon Dioxide 20 L (22-30) mmol/L Glucose 157 H (74-99) mg/dL Plasma Lactic Acid Fredy (0.7-2.0) mmol/L Magnesium 1.3 L (1.6-2.3) mg/dL ALT 36 H (4-34) U/L Urine Appearance (Clear) Ur Specific [place] (1.001-1.035) Urine Protein (Negative) Urine Blood (Negative) Ur Leukocyte Esterase (Negative) Ur Squamous Epith Cells (0-4) /hpf Urine Bacteria (None) /hpf Urine Mucus (None) /hpf 09/15/24 09/15/24 09/15/24 Range/Units 16:34 18:56 19:16 WBC (4.50-10.00) 10*3/uL Immature Gran # (0.00-0.04) 10*3/uL Neutrophils # (1.80-7.70) 10*3/uL Eosinophils # (0.04-0.35) 10*3/uL APTT (22.0-30.0) sec Carbon Dioxide (22-30) mmol/L Glucose (74-99) mg/dL Plasma Lactic Acid Fredy 6.1 H* 4.0 H* (0.7-2.0) mmol/L Magnesium (1.6-2.3) mg/dL ALT (4-34) U/L Urine Appearance Cloudy H (Clear) Ur Specific [place] 1.046 H (1.001-1.035) Urine Protein Trace H (Negative) Urine Blood Small H (Negative) Ur Leukocyte Esterase Small H (Negative) Ur Squamous Epith Cells 5 H (0-4) /hpf Urine Bacteria Rare H (None) /hpf Urine Mucus Rare H (None) /hpf 09/15/24 09/16/24 Range/Units 22:39 02:32 WBC (4.50-10.00) 10*3/uL Immature Gran # (0.00-0.04) 10*3/uL Neutrophils # (1.80-7.70) 10*3/uL Eosinophils # (0.04-0.35) 10*3/uL APTT (22.0-30.0) sec Carbon Dioxide (22-30) mmol/L Glucose (74-99) mg/dL Plasma Lactic Acid Fredy 3.3 H* 2.9 H* (0.7-2.0) mmol/L Magnesium (1.6-2.3) mg/dL ALT (4-34) U/L Urine Appearance (Clear) Ur Specific [place] (1.001-1.035) Urine Protein (Negative) Urine Blood (Negative) Ur Leukocyte Esterase (Negative) Ur Squamous Epith Cells (0-4) /hpf Urine Bacteria (None) /hpf Urine Mucus (None) /hpf Thrombosis Risk Factor Assmnt - Choose All That Apply Any of the Below Risk Factors Present?: Yes Each Factor Represents 1 point: Abnormal pulmonary function (COPD) Each Risk Factor Represents 2 Points: Age 61-74 years Thrombosis Risk Factor Assessment Total Risk Factor Score: 3 Thrombosis Risk Factor Assessment Level: Moderate Risk
[2024-09-16] MEDS: THIAMINE 100 MG/ML 2 ML VIAL IVP SCH (16:57)
[2024-09-16 17:41] VITALS: TEMP 97.8
[2024-09-16] MEDS ORDERED: PROCHLORPERAZINE INJ 10 MG/2 ML VIAL IVP PRN (17:46)
--- NOTE | 2024-09-16 18:03 | CT ---
EXAMINATION TYPE: CT brain wo con DATE OF EXAM: 09/16/2024 5:25 PM COMPARISON: Recent CT had study 09/15/2024. CLINICAL INDICATION: Female, 64 years old with history of altered mental status. ?hypodensity left c erebell, ams TECHNIQUE: Brain: Axial CT images of the brain were obtained with coronal and sagittal reformats created and rev iewed. Contrast used: None. Oral contrast used: None. CT DLP: 1229.4 mGycm, Automated exposure control for dose reduction was used. FINDINGS: Brain: Extra-axial spaces: No abnormal extra-axial fluid collections. Ventricular system: Within normal limits Cerebral parenchyma: No acute intracranial hemorrhage. Multifocal regions of new hypoattenuation invo lving the region of the posterior circulation including the cerebellar hemispheres (left greater than right) and bilateral occipitoparietal lobes. Additionally, there is hyperattenuation in the left bas al ganglia. Scattered hypoattenuating areas are seen within the white matter. Mass effect: No evidence of midline shift. Intracranial vasculature: unremarkable Soft tissues: Normal. Calvarium/osseous structures: No depressed skull fracture. Paranasal sinuses and mastoid air cells: Mild scattered paranasal sinus disease. Visualized orbits: Orbital contents are intact. IMPRESSION: Multifocal regions of new hypoattenuation throughout the bilateral cerebellar hemispheres, bilateral parieto-occipital lobes and left basal ganglia compatible with posterior circulation territory infarc tions. *Dr. Buchanan discussed critical results with Patient's RN Annabel. Results were then discussed with the Neuro team. [facility], , 09/16/2024 6:01 PM
--- NOTE | 2024-09-16 18:19 | P.PN ---
Progress Note - Text Progress Note Date: 09/16/[address] head showed bilateral hemispheric stroke. As result, I wanted the patient to transfer to ICU for closer neuro checks every 1 hour. I will give the patient Mannitol for concern of cytotoxic edema down the line especially with posterior circulation stroke bilaterally and will get repeat CT head tomorrow. I spoke with ICU attending (Dr. Reyes Hidalgo) and he accepted. I attempted to contact the primary team but went to voice message.
[2024-09-16 19:31] LABS: Glucose,Whole Blood 126 mg/dL (70-110)
--- NOTE | 2024-09-16 19:39 | P.PN ---
Progress Note - Text Progress Note Date: 09/16/[address] Queen, and we are in agreement, of attempting to transfer her to a tertiary center for neurosurgical evaluation in case edema becomes significant (the primary team will work on transfer process). Also will start the patient on 3% hypertonic saline. The patient has been updated
[2024-09-16] MEDS: ATORVASTATIN 40 MG TAB PO SCH (19:51)
[2024-09-16] MEDS: SODIUM CHLORIDE 3%(HYPERTONIC) 500 ML IV ONE (20:36)
[2024-09-16] MEDS: DILTIAZEM 5 MG/ML 5 ML VIAL IVP STA (21:43)
[2024-09-16] MEDS: HEPARIN SODIUM,PORCINE 5,000 UNIT/ML 1 ML VIAL SQ SCH (21:59)
[2024-09-17 00:33] LABS: African American GFR (CKD) >90 (>60 ml/min/1.73 sqM); Anion Gap 7 mmol/L; Blood Urea Nitrogen 13 mg/dL (7-17); Calcium 8.5 mg/dL (8.4-10.2); Carbon Dioxide 28 mmol/L (22-30); Chloride 105 mmol/L (98-107); Glucose 114 mg/dL (74-99); Non-African American GFR(CKD) >90 (>60 ml/min/1.73 sqM); Sodium 140 mmol/L (137-145)
[2024-09-17 01:21] VITALS: BP 134/79; PULSE 61; RESP 16
--- NOTE | 2024-09-17 01:23 | CT ---
EXAM: CT Head Without Intravenous Contrast CLINICAL HISTORY: ITS.REASON CT Reason: Rule out New CVA TECHNIQUE: Axial computed tomography images of the head/brain without intravenous contrast. CTDI is 48.9 mGy and DLP is 1182.8 mGy-cm. This CT exam was performed using one or more of the following dose reduction techniques: automated exposure control, adjustment of the mA and/or kV according to patient size, and/or use of iterative reconstruction technique. COMPARISON: No relevant prior studies available. FINDINGS: Brain: Fairly extensive acute/subacute bilateral cerebellar infarcts, left larger than right. Acute/subacute right GRADES 1 THRU 6 VISITING TEACHER territory infarct involving the right parietal and occipital lobes and right splenium of the corpus callosum, measuring 5.5 x 2.4 x 4.4 cm. Acute/subacute left GRADES 1 THRU 6 VISITING TEACHER territory infarct involving the left occipital lobe measuring 6.0 x 2. 2 x 2.4 cm. Associated acute infarct in the left thalamus. No acute intracranial hemorrhage. Midline shift: No midline shift. Ventricles: Posterior fossa mass effect with 4th ventricular narrowing. No evidence of obstructive hydrocephalus at this time. Bones/joints: No acute fracture. Soft tissues: Unremarkable. Sinuses: Unremarkable as visualized. Mastoid air cells: No significant mastoid effusion. IMPRESSION: 1. Fairly extensive acute/subacute bilateral cerebellar infarcts, left larger than right. 2. Acute/subacute right GRADES 1 THRU 6 VISITING TEACHER territory infarct involving the right parietal and occipital lobes and right splenium of the corpus callosum, measuring 5.5 x 2.4 x 4.4 cm. 3. Acute/subacute left GRADES 1 THRU 6 VISITING TEACHER territory infarct involving the left occipital lobe measuring 6.0 x 2.2 x 2.4 cm. Associated acute infarct in the left thalamus. 4. Posterior fossa mass effect with 4th ventricular narrowing. No evidence of obstructive hydrocephalus at this time. <MYCVCSECTION> Communications: 09/17/24 01:35 Call Doctor Regarding Stroke, called DEBRA Rodriguez on 09/17 01:34 (-04:00)
--- NOTE | 2024-09-17 01:58 | P.CNPUL ---
History of Present Illness Consult date: 09/17/24 Requesting physician: Rosendo Hidalgo Reason for consult: other (ICU management, CVA) Chief complaint: Altered mental status History of present illness: Patient is being seen in the intensive care unit. She is altered and unable to provide information for HPI. Brought in by EMS on 09/15/2024 with altered mental status changes. She was reportedly found sitting on the toilet, confused, lethargic and not acting herself. Apparently, was at a music concert over the weekend and developed headaches with vertigo. No history of TIA/CVA. Workup in the ED including a brain CT which showed a suspected inferior medial left cerebellar infarct. Brain CT angiogram did not show any flow-limiting stenosis of the bilateral carotid bifurcations. Apparently, benefits felt to outweigh the risks of thrombolytics. A follow-up brain CT showing multifocal regions of new hypoattenuation throughout the bilateral cerebellar hemispheres, bilateral parietal occipital lobes, and left basal ganglia compatible with posterior circulation territory infarcts. Neurology team recommended the patient be transferred to the intensive care unit for close neurological monitoring. Also, previously started on mannitol and then later hypertonic saline with concerns of cytotoxic edema. There is a pending transfer to tertiary care center, possibly [facility]. No bed currently yet available. Patient is currently confused and lethargic. She does awaken and follow some basic commands. She is moving all 4 extremities. Adequate gag and cough reflex and able to protect her airway. No seizure activity noted. Prior EEG was abnormal with background slowing suggestive of mild to moderate encephalopathy. Focal slowing over the left temporal area suggestive of cerebral dysfunction. No epileptiform discharge or seizure on the EEG. Hypertonic saline infusing at 60 mL/h. Most recent sodium 140 mmol/L. Pupils are reactive, no hypertension, or bradycardia. Of note, patient previously in atrial fibrillation with rapid ventricular response. This was self converting and patient did not require any antiarrhythmics. Cardiology was consulted for this. Current rhythm appears normal sinus on bedside monitor. Labs including a CBC with a WBC count of 13, hemoglobin 13.2, platelets 253. Most recent BMP with a sodium of 140, potassium 4, chloride 105, serum bicarb 28, BUN 13, creatinine 0.65, glucose 114. Current vital signs: Afebrile, heart rate 64 bpm, blood pressure 123/85 mmHg, nontachypn eic, SpO2 recorded at 94% on 2 L/min nasal cannula. Review of Systems ROS unobtainable: due to mental status Past Medical History Past Medical History: COPD, Myocardial Infarction (DE) Last Myocardial Infarction Date:: 2004 History of Any Multi-Drug Resistant Organisms: None Reported Past Surgical History: Section, Orthopedic Surgery Past Psychological History: No Psychological Hx Reported Smoking Status: Current every day smoker Past Alcohol Use History: Occasional Past Drug Use History: None Reported Medications and Allergies Home Medications Medication Instructions Recorded Confirmed Type Acetaminophen Tab [Tylenol Tab] 500 - 1,000 mg PO Q6H PRN 09/15/24 09/15/24 History Meclizine HCl [Antivert] 25 mg PO TID PRN 09/15/24 09/15/24 History Allergies Allergy/AdvReac Type Severity Reaction Status Date / Time codeine Allergy Nausea & Verified 09/15/24 20:38 Vomiting cyclobenzaprine Allergy itching, Verified 09/15/24 20:38 [From Flexeril] feels like things are crawling on her morphine Allergy Nausea & Verified 09/15/24 20:38 Vomiting Physical Exam Vitals: Vital Signs Temp Pulse Pulse Resp BP BP Pulse Ox 09/16/24 23:00 64 14 123/85 94 L 09/16/24 22:15 69 14 123/85 95 09/16/24 22:00 64 7 L 128/78 94 L 09/16/24 21:45 64 19 128/78 95 09/16/24 21:30 63 17 128/78 93 L 09/16/24 21:15 63 18 128/78 98 09/16/24 21:00 64 16 118/74 96 09/16/24 20:45 62 17 119/80 95 09/16/24 20:30 62 17 125/75 95 09/16/24 20:15 62 15 91/63 94 L 09/16/24 20:00 97.8 F 65 13 107/52 95 09/16/24 19:45 63 15 122/69 93 L 09/16/24 19:30 65 18 117/78 93 L 09/16/24 19:28 68 12 117/78 09/16/24 15:35 97.8 F 86 18 104/59 90 L 09/16/24 11:21 97.5 F L 65 16 134/80 92 L 09/16/24 08:36 98.3 F 78 18 113/67 90 L 09/16/24 04:00 98.3 F 77 19 145/80 93 L Intake and Output 09/16/24 09/16/24 09/17/24 14:59 22:59 06:59 Intake Total 75 75 Output Total 515 55 Balance -440 20 Intake: IV 75 75 Sodium Chloride 0.9% 1, 75 75 000 ml @ 75 mls/hr IV . [id number] [facility] Rx#:[id number] Output: Urine 515 55 Other: Voiding Method Diaper Diaper Diaper External Catheter External Catheter External Catheter GENERAL EXAM: Lethargic 64-year-old female, will awaken and answer some questioning and intermittently follow commands, adequate gag and cough. HEAD: Normocephalic and atraumatic EYES: Normal reaction of pupils, equal size. NOSE: Clear with pink turbinates. THROAT: No erythema or exudates. NECK: No masses, no JVD. Lethargic, oriented to self, CHEST: No chest wall deformity. LUNGS: Equal air entry with no crackles, wheeze, rhonchi or dullness. On 2 L/min nasal cannula. No conversational dyspnea or accessory muscle use.. CVS: S1 and S2 normal with no audible murmur, regular rhythm. No extra heart sounds ABDOMEN: No hepatosplenomegaly, active bowel sounds, no guarding or rigidity. SPINE: No scoliosis or deformity SKIN: No rashes CENTRAL NERVOUS SYSTEM: Lethargic, oriented to self, following simple commands, no observable facial asymmetry, expressive dysphasia, moving all 4 extremities against gravity, however, does not cooperate with exam and will fall to bed due to limited cooperation. DTRs 1+ throughout. Neutral Babinski. EXTREMITIES: There is no peripheral edema, clubbing, or cyanosis. Peripheral pulses are intact. Results - Laboratory Findings CBC and BMP: 09/16/24 12:03 09/16/24 23:47 PT/INR, D-dimer PT 11.4 sec (10.0-12.5) 09/15/24 16:34 INR 1.0 (<1.2) 09/15/24 16:34 Abnormal lab findings: Abnormal Labs 09/15/24 09/15/24 09/15/24 16:34 16:34 16:34 WBC 15.98 H Immature Gran # 0.08 H Neutrophils # 13.92 H Monocytes # Eosinophils # 0.01 L APTT 20.6 L Sodium Carbon Dioxide 20 L Glucose 157 H POC Glucose (mg/dL) Plasma Lactic Acid Fredy Magnesium 1.3 L ALT 36 H Triglycerides Cholesterol LDL Cholesterol, Calc Urine Appearance Ur Specific [place] Urine Protein Urine Blood Ur Leukocyte Esterase Ur Squamous Epith Cells Urine Bacteria Urine Mucus 09/15/24 09/15/24 09/15/24 16:34 18:56 19:16 WBC Immature Gran # Neutrophils # Monocytes # Eosinophils # APTT Sodium Carbon Dioxide Glucose POC Glucose (mg/dL) Plasma Lactic Acid Fredy 6.1 H* 4.0 H* Magnesium ALT Triglycerides Cholesterol LDL Cholesterol, Calc Urine Appearance Cloudy H Ur Specific [place] 1.046 H Urine Protein Trace H Urine Blood Small H Ur Leukocyte Esterase Small H Ur Squamous Epith Cells 5 H Urine Bacteria Rare H Urine Mucus Rare H 09/15/24 09/16/24 09/16/24 22:39 02:32 09:50 WBC Immature Gran # Neutrophils # Monocytes # Eosinophils # APTT Sodium Carbon Dioxide Glucose POC Glucose (mg/dL) Plasma Lactic Acid Fredy 3.3 H* 2.9 H* Magnesium ALT Triglycerides 187.00 H Cholesterol 324.00 H LDL Cholesterol, Calc 243.9 H Urine Appearance Ur Specific [place] Urine Protein Urine Blood Ur Leukocyte Esterase Ur Squamous Epith Cells Urine Bacteria Urine Mucus 09/16/24 09/16/24 09/16/24 12:03 19:29 20:14 WBC 13.10 H Immature Gran # Neutrophils # 10.53 H Monocytes # 1.04 H Eosinophils # 0.00 L APTT Sodium 135 L Carbon Dioxide Glucose POC Glucose (mg/dL) 126 H Plasma Lactic Acid Fredy Magnesium ALT Triglycerides Cholesterol LDL Cholesterol, Calc Urine Appearance Ur Specific [place] Urine Protein Urine Blood Ur Leukocyte Esterase Ur Squamous Epith Cells Urine Bacteria Urine Mucus 09/16/24 23:47 WBC Immature Gran # Neutrophils # Monocytes # Eosinophils # APTT Sodium Carbon Dioxide Glucose 114 H POC Glucose (mg/dL) Plasma Lactic Acid Fredy Magnesium ALT Triglycerides Cholesterol LDL Cholesterol, Calc Urine Appearance Ur Specific [place] Urine Protein Urine Blood Ur Leukocyte Esterase Ur Squamous Epith Cells Urine Bacteria Urine Mucus - Diagnostic Findings Chest x-ray: image reviewed Assessment and Plan Assessment: Multifocal ischemic CVA, original brain CT from admission showing suspected inferior medial left cerebellar infarct. Brain CT angiogram did not show any flow-limiting stenosis of the bilateral carotid bifurcations. Normal [place]. The posterior inferior cerebellar arteries were not well-visualized. A follow-up brain CT 24 hours later showing new multifocal regions of hypoattenuation throughout the bilateral cerebellar hemispheres, bilateral parietal occipital lobes and left basal ganglia compatible with posterior circulation territory infarctions. Patient was transferred to the intensive care unit for close neurological monitoring. Also, concerns for impending cytotoxic edema and patient was started on mannitol and then later switched to hypertonic saline which is currently infusing at 60 mL/h. There is a pending transfer to tertiary [facility] Altered mental status, secondary to above Atrial fibrillation with RVR, self converted and currently normal sinus on bedside monitor, not previously started anticoagulation Hyperlipidemia COPD, inactive Tobacco smoker Plan: Patient previously transferred to the intensive care unit for close neurological monitoring Patient currently down for follow-up brain CT Continue neurochecks per protocol Hypertonic saline continues at 60 mL/h Sodium is being monitored Able to protect airway, no need for intubation at this point. Allow for permissive hypertension Echocardiogram was ordered but not yet obtained Pending transfer to [facility], and EMS is en route. I have personally seen and examined the patient, performed the documentation and the assessment and plan as written. Number of minutes spent on the visit:20 Time with Patient: Greater than 30
--- NOTE | 2024-09-17 02:12 | CT ---
EXAM: CT Angiography Head With Intravenous Contrast CLINICAL HISTORY: ITS.REASON CT Reason: Acute CVA TECHNIQUE: Axial computed tomographic angiography images of the head with intravenous contrast. CTDI is 20.2 mGy and DLP is 268.3 mGy-cm. This CT exam was performed using one or more of the following dose reduction techniques: automated exposure control, adjustment of the mA and/or kV according to patient size, and/or use of iterative reconstruction technique. MIP reconstructed images were created and reviewed. COMPARISON: 02/25/2024 FINDINGS: Right internal carotid artery: Mild calcific stenosis supraclinoid right ICA. No aneurysm. Right anterior cerebral artery: Hypoplastic right A1 segment, stable from prior. Right AUSTYN supplied via the anterior communicating artery. No occlusion or significant stenosis. No aneurysm. Right middle cerebral artery: Unremarkable. No occlusion or significant stenosis. No aneurysm. Right posterior cerebral artery: Occlusion of the right SIGN INSTALLER at the P3 level. No aneurysm. Right vertebral artery: Mild stenosis intracranial right vertebral artery. Left internal carotid artery: No acute findings. Intracranial segment is patent with no significant stenosis. No aneurysm. Left anterior cerebral artery: Unremarkable. No occlusion or significant stenosis. No aneurysm. Left middle cerebral artery: Unremarkable. No occlusion or significant stenosis. No aneurysm. Left posterior cerebral artery: Severe left P1 stenosis with occlusion of the P3 level. No aneurysm. Left vertebral artery: Mild stenosis intracranial left vertebral artery.. Basilar artery: Unremarkable. No occlusion or significant stenosis. No aneurysm. IMPRESSION: 1. Severe left P1 stenosis with occlusion of the P3 level. 2. Occlusion of the right SIGN INSTALLER at the P3 level. EXAM: CT Angiography Neck With Intravenous Contrast CLINICAL HISTORY: ITS.REASON CT Reason: Acute CVA TECHNIQUE: Routine carotid CT angiography protocol was performed with intravenous contrast. NASCET criteria using the distal ICAs for comparison were used for evaluation of stenoses. CTDI is 20.2 mGy and DLP is 268.3 mGy-cm. This CT exam was performed using one or more of the following dose reduction techniques: automated exposure control, adjustment of the mA and/or kV according to patient size, and/or use of iterative reconstruction technique. MIP reconstructed images were created and reviewed. COMPARISON: 02/25/2024 FINDINGS: VASCULATURE: Right common carotid artery: Unremarkable. No occlusion or significant stenosis. No dissection. Right internal carotid artery: Less than 50% calcific stenosis proximal right ICA, not hemodynamically significant. No dissection. Right external carotid artery: Unremarkable. No occlusion. Right vertebral artery: Unremarkable. No occlusion or significant stenosis. No dissection. Left common carotid artery: Unremarkable. No occlusion or significant stenosis. No dissection. Left internal carotid artery: Less than 50% calcific stenosis proximal left ICA, not hemodynamically significant. No dissection. Left external carotid artery: Unremarkable. No occlusion. Left vertebral artery: Dominant left vertebral artery. No occlusion or significant stenosis. No dissection. Aorta: Conventional aortic arch branch anatomy. NECK: Bones/joints: Unremarkable. No acute fracture. Soft tissues: Unremarkable. Lung apices: Subsegmental atelectasis posterior upper lung [place]. CAROTID STENOSIS REFERENCE USING NASCET CRITERIA: % ICA stenosis = (1 - narrowest ICA diameter/diameter of distal cervical ICA) x 100. Mild - <50% stenosis. Moderate - 50-69% stenosis. Severe - 70-94% stenosis. Near occlusion - 95-99% stenosis. Occluded - 100% stenosis. IMPRESSION: No dissection, hemodynamically significant stenosis, or occlusion.
--- NOTE | 2024-09-17 09:48 | P.DS ---
Providers Date of admission: 09/15/24 19:12 Attending physician: Edel Chavez Consults: 09/15/24 19:05 Consult Physician Urgent Consulting Provider: Rosendo Hidalgo Consult Reason/Comments: Cerebellar infarct Do you want consulting provider notified?: Yes 09/16/24 17:45 Consult Physician Stat Consulting Provider: Miguelito Edmonds Consult Reason/Comments: afib rvr, cva Do you want consulting provider notified?: Yes 09/16/24 18:19 Consult Physician Urgent Consulting Provider: Reyes Hidalgo Consult Reason/Comments: bilateral hemispheric stroke and needs closer monitoring Do you want consulting provider notified?: Yes Primary care physician: [facility] Course: Hospital Course: Patient is a 64-year-old female with vertigo, COPD, CAD here for evaluation of altered mental status. Patient is a poor historian at this time and majority of history was gathered from family and ED report. At the time of admission, family reported that 3 hours from admission it was around 1 PM on 09/15, patient went to the bathroom for about an hour and heard mumbling when in the bathroom and they found patient sitting on the toilet unable to stand up and had an episode of emesis. There was also noted lethargy and confusion. They believe she did not hit her head and was responsive to questions however slow to respond. She denied chest pain, shortness of breath, abdominal pain, focal weakness, vision changes, tremors, changes in speech. Patient has episodes of vertigo but per family, her symptoms on admission were worse than usual On admission: Vitals: Temperature 97.8 F, MS 81, RR 21, BP 155/81, O2 saturation 89% on room air there is transition to 2 L nasal cannula and was satting 94% Labs: WBC 15.9, hemoglobin 14.6, platelet count 295,000, sodium 141, potassium 4.2, bicarb 20, BUN 12, creatinine 0.69, lactic acid 3.3, calcium 9.3, magnesium 1.3, AST 36, ALT and ALP PT were within normal limits, troponin negative at less than 0.0 12, proBNP 286, urinalysis showed trace protein, negative glucose, negative ketones, negative nitrites, small leukocyte esterase with high epithelial cells. UDS negative. Cepheid 4 Plex negative.. Imaging: EKG independently interpreted and shows sinus rhythm with a rate of 78 bpm, normal axis, no ST-T changes, QTc [address] shows suspected inferior medial left cerebellar artery infarct. CT angiography showed no flow- limiting stenosis of the bilateral carotid bifurcations, normal [place] with noted posterior inferior cerebral artery is not well-visualized. Chest x- ray showed cardiomegaly with some notable congestion. Patient was admitted for the evaluation of acute encephalopathy concerning to ischemic stroke. Neurology consulted and MRI of the brain, echocardiogram, aspirin, lipitor, neurochecks and cardiac monitoring was ordered. Patient had hypomagnesemia on admission and was repleted. Neurology recommended a follow-up brain CT and EEG. Follow up CT of the brain showed multifocal regions of new hypoattenuation throughout the bilateral cerebellar hemispheres, bilateral parietal occipital lobes, and left basal ganglia compatible with posterior circulation territory infarcts. Neurology team recommended the patient be transferred to the intensive care unit for close neurological monitoring. Patient was started on mannitol and then later hypertonic saline with concerns of cytotoxic edema of the brain. EEG was abnormal with background slowing suggestive of mild to moderate encephalopathy. Focal slowing over the left temporal area suggestive of cerebral dysfunction, with no epileptiform discharge or seizure. Patient also had conversion to Atrial fibrillation with RVR but did not require IV antiarrhythmics, and had no recurrence. After discussion with the rest of the care team and family, we agreed on transferring patient for neurosurgical evaluation to [facility]. Final Diagnosis: #Multifocal ischemic CVA #Acute encephalopathy, secondary to above #Lactic acidosis, resolved with IV hydration #Hypomagnesemia #Vertigo #COPD #CAD Physical examination: General: non toxic, no distress, appears at stated age, room air Derm: no unusual rashes/lesions, warm Head: atraumatic, normocephalic, symmetric Eyes: EOMI, anicteric sclera, pupils equal round reactive to light ENT: Nose and ears atraumatic Neck: No cervical lymphadenopathy, trachea midline, supple Mouth: no lip lesion, mucus membranes moist Cardiovascular: S1S2 reg, no murmur Lungs: CTA bilateral, no rhonchi, no rales, no accessory muscle use Abdominal: soft, nondistended, nontender to palpation, no guarding Ext: muscle strength 5 out of 5 in all 4 extremities grossly, no gross muscle atrophy, no contractures, positive dorsalis pedis pulse bilateral, no edema Neuro: CN II-XI grossly intact, no gross focal neuro deficits, lethargic, responds to painful stimuli Psych: Alert and oriented to self, appropriate affect and mood Patient Condition at Discharge: Critical Plan - Discharge Summary Discharge Rx Participant: Yes New Discharge Prescriptions: Continue Acetaminophen Tab [Tylenol] 500 - 1,000 mg PO Q6H PRN PRN Reason: Pain Or Fever > 100.5 Meclizine HCl [Antivert] 25 mg PO TID PRN PRN Reason: Vertigo Discharge Medication List Acetaminophen Tab [Tylenol] 500 - 1,000 mg PO Q6H PRN 09/15/24 [History] Meclizine HCl [Antivert] 25 mg PO TID PRN 09/15/24 [History] Follow up Appointment(s)/Referral(s): Alma Jasso MD [Primary Care Provider] - 1-2 days Discharge Disposition: DC/TRNS INTERMEDIATE CARE FAC
== END 2024-09-17 02:27 | disposition short-term general hospital (02) | DRG 64 ==
LOC: EC 15:30 → 3SCARD 19:12 → 2SICU 09-16 19:21
PROVIDERS: ADMIT Hospitalist; ATTEND Hospitalist
DX: I63.542 Cerebral infarction due to unspecified occlusion or stenosis of left cerebellar artery (principal); G93.6 Cerebral edema; G93.49 Other encephalopathy; E87.20 Acidosis, unspecified; I50.9 Heart failure, unspecified; J44.9 Chronic obstructive pulmonary disease, unspecified; I48.91 Unspecified atrial fibrillation; I63.541 Cerebral infarction due to unspecified occlusion or stenosis of right cerebellar artery; R29.703 NIHSS score 3; E78.5 Hyperlipidemia, unspecified; E83.42 Hypomagnesemia; I25.10 Atherosclerotic heart disease of native coronary artery without angina pectoris; F17.210 Nicotine dependence, cigarettes, uncomplicated; I25.2 Old myocardial infarction; Z79.899 Other long term (current) drug therapy; Z88.5 Allergy status to narcotic agent; Z88.8 Allergy status to other drugs, medicaments and biological substances
CPT/HCPCS: 36415; 70450; 70496; 70498; 71046; 80048; 80053; 80061; 80306; 81001; 82607; 82746; 83605; 83735; 83880; 84295; 84443; 84484; 85025; 85610; 85730; 87636; 93005; 95816; 96360; 99285